=== PATIENT | male | born 1935 | race Caucasian/White ===

== ENCOUNTER → 2016-10-09 | Outpatient (CLI) | payer MEDICARE, BC ==
[~2016-10-09] MED LIST: ACIP20TA19 PO; ADVA100A INH; ADVA250A INH; ALBU8I INH; ALBUAER3 INH; ALBUS PO; APIX2.5T PO; APIX5 PO; APIX5TAB PO; BUME1TAB PO; BUME2TAB PO; BYST5TAB2 PO; CARD120C4 PO; CIAL20TA PO; CIAL5TAB PO; DILT120T PO; DILTCD240 PO; ECOT81TA2 PO; ESZO1TAB4 PO; ESZO3 PO; FERR1TAB36 PO; FINA5TAB2 PO; FINA5TAB77 PO; LEVEMIR SQ; LEVO.1 PO; LEVO.15 PO; NEBI5 PO; POTA20IN3 PO; PRED10 PO; PRED5TAB PO; RABE1TAB PO; SERT-132 PO; SPIRCAP INH; TAMS0.4C4 PO; TAMS0.4C67 PO; TRAD5TAB PO
[2016-10-09 13:02] LABS: POTASSIUM 3.6 MEQ/L (3.5-5.1)
[2016-10-09 13:05] LABS: BICARBONATE 29.4 MEQ/L (21.0-32.0)
[2016-10-09 15:35] LABS: AUTOMATED NEUTROPHIL # 5.5 TH/MM3 (1.8-7.7); BASOPHIL # 0.1 TH/MM3 (0-0.2); BASOPHIL % 1.5 % (0.0-2.0); EOSINOPHIL # 0.1 TH/MM3 (0-0.4); EOSINOPHIL % 1.8 % (0.0-4.0); HEMATOCRIT 50.6 % (39.0-51.0); LYMPH % 13.8 % (9.0-44.0); MEAN CELL VOLUME 72.3 FL (80.0-100.0); MEAN CORPUSCULAR HEMOGLOBIN 23.3 PG (27.0-34.0); MEAN CORPUSCULAR HGB CONC 32.3 % (32.0-36.0); MONO % 9.3 % (0.0-8.0); NEUT % 73.6 % (16.0-70.0); PLATELET COUNT 333 TH/MM3 (150-450); RED BLOOD COUNT 6.99 MIL/MM3 (4.50-5.90); RED CELL DISTRIBUTION WIDTH 18.4 % (11.6-17.2); WHITE BLOOD COUNT 7.4 TH/MM3 (4.0-11.0)
[2016-10-09 15:45] LABS: BLOOD, URINE NEG (NEG); GLUCOSE,URINE NEG (NEG); KETONE, URINE NEG (NEG); MUCUS URINE FEW /lpf (OCC); NITRITE,URINE NEG (NEG); PH, URINE 5.5 (5.0-8.5); SQUAMOUS EPITHELIAL CELL URINE <1 /hpf (0-5); URINE COLOR YELLOW (YELLW/STRAW)
[2016-10-09 15:45] LABS: HEMO FLAGS AUTO DIFF
[2016-10-09 16:08] LABS: OVALOCYTES 1+ (NORMAL); SCAN/DIFF AUTO DIFF CONFIRMED; TEARDROP RBCS 1+ (NORMAL)
== END ==
LOC: PLAB 10:53
PROVIDERS: ATTEND Internal Medicine Nephrology
DX: N18.3 Chronic kidney disease, stage 3 (moderate) (principal)
CPT/HCPCS: 36415; 80069; 81001; 85025

== ENCOUNTER 2016-11-06 12:31 | Inpatient (IN) | payer MEDICARE, BC ==
[2016-11-06] VITALS (12 sets, daily range): BP systolic 96–121; BP diastolic 53–90; PULSE 101–115; RESP 16–22; TEMP 97.7–98.5; O2SAT 83–93
[~2016-11-06] VITALS: Ht 182.9 cm; Wt 96.9 kg
[~2016-11-06 12:31] MED LIST changes: -ADVA100A INH; -ALBUAER3 INH; -ALBUS PO; -APIX2.5T PO; -APIX5TAB PO; -BUME2TAB PO; -BYST5TAB2 PO; -CARD120C4 PO; -CIAL5TAB PO; -DILT120T PO; -ESZO1TAB4 PO; -FERR1TAB36 PO; -FINA5TAB2 PO; -LEVO.15 PO; -PRED5TAB PO; -RABE1TAB PO; -SPIRCAP INH; -TAMS0.4C4 PO
--- NOTE | 2016-11-06 13:08 | PD ---
HPI Chief Complaint: Respiratory Distress Time Seen by Provider: 13:04 Travel History International Travel<30 days: No Contact w/Intl Traveler<30days: No Traveled to known affect area: No History of Present Illness HPI 81-year-old male presents to the emergency department for evaluation of increased heart rate. Patient states he has been checking his heart rate with his blood pressure machine and noticed it to be elevated approximately one to one half weeks ago. He states has been running between 1:15 and 120. However, Thursday, he noticed his heart rate was 145. Patient has a history of atrial flutter/atrial fibrillation, chronic respiratory failure on 3 L O2 nasal cannula chronically, COPD,, asbestos exposure, PVD, GERD, bladder cancer, hyperlipidemia, hypertension, hypothyroidism, peripheral neuropathy, congestive heart failure, obesity, CKD, pneumonia. Patient reports shortness of breath, but states is chronic for him. He has reports bilateral lower extremity edema, which she states is slightly worse than normal. Patient sees Dr. Peters as his health insurance assessor. Patient denies any chest pain. No other complaints. Patient reports intermittent dizziness as well. PFSH Past Medical History Asthma: Yes Anxiety: No Depression: No Cancer: Yes (BLADDER) Cardiovascular Problems: Yes (TACHYCARDIA) High Cholesterol: Yes COPD: Yes Cerebrovascular Accident: Yes Coronary Artery Disease: Yes (PVD/PAD) Diabetes: Yes Diminished Hearing: No Endocrine: Yes Gastrointestinal Disorders: Yes (GERD) Genitourinary: Yes (BALDDER CANCER/ BPH) Hepatitis: No Hiatal Hernia: Yes (ESOPAGEAL STRICTURE) Hypertension: Yes Immune Disorder: No Musculoskeletal: Yes (ARTHRITIS, NECK/ BACK SX) Neurologic: Yes (NEUROPATHY HANDS/ FEET) Psychiatric: No Reproductive: No Respiratory: Yes (COPD) Thyroid Disease: Yes (HYPOTHYROID) Past Surgical History Abdominal Surgery: Yes ( UMBILICAL HERNIORRHAPHY) AICD: No Body Medical Devices: CERVICAL HARDWARE Eye Surgery: Yes (LT EYE CATARACT EXTRACT.) Genitourinary Surgery: Yes (TURBT, EXC. UNILAT. TESTICLE) Joint Replacement: No Pacemaker: No Tonsillectomy: Yes Other Surgery: Yes (BACK SURGERY 08/03/12) Social History Alcohol Use: Yes (~2-3 BEER WEEKLY) Tobacco Use: No Substance Use: No Allergies-Medications (Allergen,Severity, Reaction): Coded Allergies: Biaxin (Verified Allergy, Intermediate, DIARRHEA, 11/06/16) Cimetidine (Verified Allergy, Intermediate, DIARRHEA, 11/06/16) Hydroxyzine (Verified Allergy, Intermediate, DIARRHEA, 11/06/16) Levaquin (Verified Allergy, Intermediate, HIVES, 11/06/16) Zyrtec (Verified Allergy, Intermediate, DROWSY, 11/06/16) Reported Meds & Prescriptions Reported Meds & Active Scripts Active Reported Albuterol Liq (Albuterol Sulfate) 2 Mg/5 Ml Syrp 0.4 Mg PO BID PRN Advair Diskus Inh (Fluticasone-Salmeterol Inh) 100-50 Mcg/Blist Aer 1 Puff INH DAILY Rinse mouth after use. Spiriva Handihaler (Tiotropium Inh) 18 Mcg Cap 18 Mcg INH DAILY 1 capsule = 18 mcg Proair Hfa 8.5 GM Inh (Albuterol Sulfate) 90 Mcg/Act Aer 2 Puff INH Q4-6H PRN 108 mcg/actuation Prednisone 5 Mg Tab 5 Mg PO DAILY Cialis (Tadalafil) 5 Mg Tab 5 Mg PO DAILY Do not exceed 1 dose/day. Iron (Ferrous Sulfate) 325 Mg Tab 325 Mg PO DAILY Take Eszopiclone 3 Mg Tab 3 Mg PO HS PRN Tamsulosin (Tamsulosin HCl) 0.4 Mg Cap 0.4 Mg PO HS Sertraline (Sertraline HCl) 50 Mg Tab 50 Mg PO DAILY Bumetanide 1 Mg Tab 1 Mg PO HS Bumetanide 2 Mg Tab 2 Mg PO AC BREAKFAST Diltiazem (Diltiazem HCl) 120 Mg Tab 120 Mg PO DAILY Eliquis (Apixaban) 5 Mg Tab 5 Mg PO HS Eliquis (Apixaban) 5 Mg Tab 10 Mg PO AC BREAKFAST Tradjenta (Linagliptin) 5 Mg Tab 5 Mg PO DAILY Finasteride 5 Mg Tab 5 Mg PO DAILY Do not crush. Rabeprazole (Rabeprazole Sodium) 20 Mg Tab 20 Mg PO DAILY Bystolic (Nebivolol) 5 Mg Tab 5 Mg PO DAILY Synthroid (Levothyroxine Sodium) 150 Mcg Tab 150 Mcg PO DAILY Review of Systems Except as stated in HPI: all other systems reviewed are Neg Physical Exam Narrative GENERAL: Well-developed well-nourished elderly male patient, Afebrile. SKIN: Warm and dry. HEAD: Normocephalic. Atraumatic. EYES: No scleral icterus. No injection or drainage. NECK: Supple, trachea midline. No JVD or lymphadenopathy. CARDIOVASCULAR: Regular rate, but tachycardic without murmurs, gallops, or rubs. RESPIRATORY: Breath sounds equal bilaterally. No accessory muscle use. Lungs sounds slightly diminished. No wheezes or rhonchi. GASTROINTESTINAL: Abdomen soft, non-tender, nondistended. MUSCULOSKELETAL: No cyanosis. Bilateral 3+ lower extremity edema. BACK: Nontender without obvious deformity. No CVA tenderness. Data Data Last Documented VS Vital Signs Date Time Temp Pulse Resp B/P Pulse Ox O2 Delivery O2 Flow Rate FiO2 11/06/16 13:15 19 Nasal Cannula 3 11/06/16 13:15 113 96/62 89 11/06/16 12:32 98.5 Orders Electrocardiogram (11/06/16 13:04) Basic Metabolic Panel (Bmp) (11/06/16 13:04) Ckmb (Isoenzyme) Profile (11/06/16 13:04) Complete Blood Count With Diff (11/06/16 13:04) Magnesium (Mg) (11/06/16 13:04) Prothrombin Time / Inr (Pt) (11/06/16 13:04) Act Partial Throm Time (Ptt) (11/06/16 13:04) Troponin I (11/06/16 13:04) Chest, Single Ap (11/06/16 13:04) Ecg Monitoring (11/06/16 13:04) Bilateral Bp Monitoring (11/06/16 13:04) Iv Access Insert/Monitor (11/06/16 13:04) Oximetry (11/06/16 13:04) Oxygen Administration (11/06/16 13:04) Sodium Chloride 0.9% Flush (Ns Flush) (11/06/16 13:15) B-Type Natriuretic Peptide (11/06/16 13:08) Diltiazem Inj (Cardizem Inj) (11/06/16 13:45) Diltiazem Inj (Cardizem Inj) (11/06/16 13:45) Diltiazem Inj (Cardizem Inj) (11/06/16 14:30) Consult Cardiology (11/06/16 ) Labs Laboratory Tests Test 11/06/16 13:11 White Blood Count 11.1 TH/MM3 Red Blood Count 6.79 MIL/MM3 Hemoglobin 16.1 GM/DL Hematocrit 50.2 % Mean Corpuscular Volume 74.0 FL Mean Corpuscular Hemoglobin 23.7 PG Mean Corpuscular Hemoglobin 32.0 % Concent Red Cell Distribution Width 20.4 % Platelet Count 386 TH/MM3 Mean Platelet Volume 9.7 FL Neutrophils (%) (Auto) 83.9 % Lymphocytes (%) (Auto) 7.0 % Monocytes (%) (Auto) 7.7 % Eosinophils (%) (Auto) 0.7 % Basophils (%) (Auto) 0.7 % Neutrophils # (Auto) 9.3 TH/MM3 Lymphocytes # (Auto) 0.8 TH/MM3 Monocytes # (Auto) 0.9 TH/MM3 Eosinophils # (Auto) 0.1 TH/MM3 Basophils # (Auto) 0.1 TH/MM3 CBC Comment AUTO DIFF Differential Comment AUTO DIFF CONFIRMED Platelet Estimate NORMAL Platelet Morphology Comment NORMAL Ovalocytes 1+ Prothrombin Time 14.2 SEC Prothromb Time International 1.3 RATIO Ratio Activated Partial 29.4 SEC Thromboplast Time Sodium Level 142 MEQ/L Potassium Level 3.9 MEQ/L Chloride Level 106 MEQ/L Carbon Dioxide Level 25.7 MEQ/L Anion Gap 10 MEQ/L Blood Urea Nitrogen 37 MG/DL Creatinine 1.80 MG/DL Estimat Glomerular Filtration 36 ML/MIN Rate Random Glucose 171 MG/DL Calcium Level 8.4 MG/DL Magnesium Level 2.0 MG/DL Total Creatine Kinase 58 U/L Troponin I 0.03 NG/ML B-Type Natriuretic Peptide 396 PG/ML [facility] Medical Decision Making Medical Screen Exam Complete: Yes Emergency Medical Condition: Yes Medical Record Reviewed: Yes Interpretation(s) chest x-ray - CONCLUSION: 1. Cardiomegaly. 2. Scattered bibasilar atelectactic changes. Differential Diagnosis A. fib with RVR versus sinus tachycardia versus ACS versus electrolyte abnormality versus CHF exacerbation Narrative Course 81-year-old male presents to the emergency department for evaluation of elevated heart rate for one to one and half weeks. Patient has multiple chronic medical problems. EKG, CBC, BMP, CK, troponin, magnesium, BNP, PTT, PTT /INR , chest x-ray are ordered and pending. EKG shows atrial flutter, heart rate 110. Patient is given Cardizem 25mg IV bolus and Cardizem drip is ordered. CBC shows leukocytosis 11.1. BMP shows elevated BUN/creatinine at 37/1.80, glucose 171. CK is 58. Troponin is 0.03. Magnesium is 2.0. BNP is 396. PT is 14.2, INR 1.3, PTT 29.4. Chest x-ray shows cardiomegaly; scattered bibasilar atelectactic changes. Patient is slightly hypertensive with a BP of 96/62. Cardizem is held at this time due to this. Dr. Luque, my attending physician, saw the patient. He recommends admission with telemetry to [facility] with a consult for Dr. Peters to adjust medications. 0567 [facility] is paged for admission. 1500 - Dr. Logan accepted admission. Diagnosis Primary Impression: Atrial fibrillation with rapid ventricular response Additional Impressions: CKD (chronic kidney disease), stage III chronic dyspnea, chronic respiratory failure Admitting Information Admitting Physician Requests: Observation Ree Perez Nov 06, 2016 13:08
[2016-11-06] MEDS ORDERED: SODIUM CHLORIDE 0.9% FLUSH 5 ML FLUSH IVF PRN (13:15)
[2016-11-06 13:29] LABS: AUTOMATED NEUTROPHIL # 9.3 TH/MM3 (1.8-7.7); BASOPHIL # 0.1 TH/MM3 (0-0.2); BASOPHIL % 0.7 % (0.0-2.0); EOSINOPHIL # 0.1 TH/MM3 (0-0.4); EOSINOPHIL % 0.7 % (0.0-4.0); HEMATOCRIT 50.2 % (39.0-51.0); LYMPHOCYTE # 0.8 TH/MM3 (1.0-4.8); MEAN CORPUSCULAR HEMOGLOBIN 23.7 PG (27.0-34.0); MONO % 7.7 % (0.0-8.0); NEUT % 83.9 % (16.0-70.0); PLATELET COUNT 386 TH/MM3 (150-450); RED BLOOD COUNT 6.79 MIL/MM3 (4.50-5.90); RED CELL DISTRIBUTION WIDTH 20.4 % (11.6-17.2); WHITE BLOOD COUNT 11.1 TH/MM3 (4.0-11.0)
[2016-11-06 13:35] LABS: HEMO FLAGS AUTO DIFF
[2016-11-06 13:39] LABS: APTT (PATIENT) 29.4 SEC (24.3-30.1); INTERNATIONAL NORMALIZED RATIO 1.3 RATIO; PROTHROMBIN TIME - PATIENT 14.2 SEC (9.8-11.6)
[2016-11-06] MEDS ORDERED: DILTIAZEM HCL 25 MG/5 ML VIAL IV PUSH ONE (13:45)
[2016-11-06] MEDS ORDERED: DILTIAZEM INJ 125 MG in SODIUM CHLORIDE 0.9% INJ 100 ML IV SCH (13:45)
[2016-11-06 13:52] LABS: BICARBONATE 25.7 MEQ/L (21.0-32.0); POTASSIUM 3.9 MEQ/L (3.5-5.1)
--- NOTE | 2016-11-06 13:52 | RADRPT ---
EXAM DATE/TIME: 11/06/2016 13:25 [place] COMPARISON: CHEST SINGLE AP, May 05, 2016, 5:48. INDICATIONS : Shortness of breath MEDICAL HISTORY : None. SURGICAL HISTORY : None. ENCOUNTER: Initial ACUITY: 4 - 6 days PAIN SCORE: 0/10 LOCATION: Bilateral chest FINDINGS: The heart is enlarged. The pulmonary vascular pattern is normal. Scattered atelectactic changes are noted within the lung bases. No alveolar consolidation is noted. Hardware is noted within the cerv ical spine. CONCLUSION: 1. Cardiomegaly. 2. Scattered bibasilar atelectactic changes. Darin Singh MD on November 06, 2016 at 13:48 Board Certified Radiologist. This report was verified electronically.
[2016-11-06 14:05] LABS: PLATELET ESTIMATE SMEAR NORMAL (NORMAL); SCAN/DIFF AUTO DIFF CONFIRMED
[2016-11-06 14:06] LABS: OVALOCYTES 1+ (NORMAL); PLATELET MORPHOLOGY NORMAL (NORMAL)
[2016-11-06] MEDS ORDERED: ESZO1TAB4 PO (14:06)
[2016-11-06] MEDS ORDERED: CIAL5TAB PO (14:06)
[2016-11-06] MEDS ORDERED: SERT-132 PO (14:06)
[2016-11-06] MEDS ORDERED: TAMS0.4C4 PO (14:06)
[2016-11-06] MEDS ORDERED: BUME2TAB PO (14:06)
[2016-11-06] MEDS ORDERED: DILT120T PO (14:06)
[2016-11-06] MEDS ORDERED: FERR1TAB36 PO (14:06)
[2016-11-06] MEDS ORDERED: FINA5TAB2 PO (14:06)
[2016-11-06] MEDS ORDERED: RABE1TAB PO (14:06)
[2016-11-06] MEDS ORDERED: APIX5TAB PO ×2 (14:06)
[2016-11-06] MEDS ORDERED: TRAD5TAB PO (14:06)
[2016-11-06] MEDS ORDERED: LEVO.15 PO (14:06)
[2016-11-06] MEDS ORDERED: BUME1TAB PO (14:06)
[2016-11-06] MEDS ORDERED: BYST5TAB2 PO (14:06)
[2016-11-06] MEDS ORDERED: PRED5TAB PO (14:07)
[2016-11-06] MEDS ORDERED: ALBUS PO (14:07)
[2016-11-06] MEDS ORDERED: ADVA100A INH (14:07)
[2016-11-06] MEDS ORDERED: SPIRCAP INH (14:07)
[2016-11-06] MEDS ORDERED: ALBUAER3 INH (14:07)
[2016-11-06] MEDS ORDERED: DILTIAZEM HCL 25 MG/5 ML VIAL IV ONE (14:30)
--- NOTE | 2016-11-06 15:22 | PD ---
Physical Exam Narrative 81-year-old gentleman with a history of atrial fibrillation/atrial flutter, as best doses, chronic respiratory failure, COPD, hypertension, congestive heart failure, chronic kidney disease, who presents today with complaints of intermittent elevated heart rate. The patient states that over the last week and a half he's noted his heart rate to be elevated. He did state that he was slightly lightheaded episodically which prompted him to check his heart rate. He denies any acute worsening shortness of breath. He denies any chest pain, chest pressure. He was seen in April and had an ablation by Dr. Maggie Peters, cardiac firer [employer], who reportedly successfully ablated him. He now presents with elevated heart rate with the reported episodes of weakness. GENERAL: Well-nourished, well-developed patient. SKIN: Warm and dry. HEAD: Normocephalic/atraumatic. EYES: No injection or drainage. NECK: Supple, trachea midline. No JVD or lymphadenopathy. CARDIOVASCULAR: Rate that appears regular in the 110s and 120s. No obvious ectopy or murmurs appreciated. RESPIRATORY: Slight decreased respiratory effort. No appreciable Rales or rhonchi. GASTROINTESTINAL: Abdomen soft, non-tender, nondistended. NEUROLOGICAL: Awake and alert. Cranial nerves II through XII intact. Motor grossly within normal limits. Five out of 5 muscle strength in all muscle groups. Normal speech. Data Data Last Documented VS Vital Signs Date Time Temp Pulse Resp B/P Pulse Ox O2 Delivery O2 Flow Rate FiO2 11/06/16 13:15 19 Nasal Cannula 3 11/06/16 13:15 113 96/62 89 11/06/16 12:32 98.5 Orders Electrocardiogram (11/06/16 13:04) Basic Metabolic Panel (Bmp) (11/06/16 13:04) Ckmb (Isoenzyme) Profile (11/06/16 13:04) Complete Blood Count With Diff (11/06/16 13:04) Magnesium (Mg) (11/06/16 13:04) Prothrombin Time / Inr (Pt) (11/06/16 13:04) Act Partial Throm Time (Ptt) (11/06/16 13:04) Troponin I (11/06/16 13:04) Chest, Single Ap (11/06/16 13:04) Ecg Monitoring (11/06/16 13:04) Bilateral Bp Monitoring (11/06/16 13:04) Iv Access Insert/Monitor (11/06/16 13:04) Oximetry (11/06/16 13:04) Oxygen Administration (11/06/16 13:04) Sodium Chloride 0.9% Flush (Ns Flush) (11/06/16 13:15) B-Type Natriuretic Peptide (11/06/16 13:08) Diltiazem Inj (Cardizem Inj) (11/06/16 13:45) Diltiazem Inj (Cardizem Inj) (11/06/16 13:45) Diltiazem Inj (Cardizem Inj) (11/06/16 14:30) Consult Cardiology (11/06/16 ) Admit Order (Ed Use Only) (11/06/16 15:01) Labs Laboratory Tests Test 11/06/16 13:11 White Blood Count 11.1 TH/MM3 Red Blood Count 6.79 MIL/MM3 Hemoglobin 16.1 GM/DL Hematocrit 50.2 % Mean Corpuscular Volume 74.0 FL Mean Corpuscular Hemoglobin 23.7 PG Mean Corpuscular Hemoglobin 32.0 % Concent Red Cell Distribution Width 20.4 % Platelet Count 386 TH/MM3 Mean Platelet Volume 9.7 FL Neutrophils (%) (Auto) 83.9 % Lymphocytes (%) (Auto) 7.0 % Monocytes (%) (Auto) 7.7 % Eosinophils (%) (Auto) 0.7 % Basophils (%) (Auto) 0.7 % Neutrophils # (Auto) 9.3 TH/MM3 Lymphocytes # (Auto) 0.8 TH/MM3 Monocytes # (Auto) 0.9 TH/MM3 Eosinophils # (Auto) 0.1 TH/MM3 Basophils # (Auto) 0.1 TH/MM3 CBC Comment AUTO DIFF Differential Comment AUTO DIFF CONFIRMED Platelet Estimate NORMAL Platelet Morphology Comment NORMAL Ovalocytes 1+ Prothrombin Time 14.2 SEC Prothromb Time International 1.3 RATIO Ratio Activated Partial 29.4 SEC Thromboplast Time Sodium Level 142 MEQ/L Potassium Level 3.9 MEQ/L Chloride Level 106 MEQ/L Carbon Dioxide Level 25.7 MEQ/L Anion Gap 10 MEQ/L Blood Urea Nitrogen 37 MG/DL Creatinine 1.80 MG/DL Estimat Glomerular Filtration 36 ML/MIN Rate Random Glucose 171 MG/DL Calcium Level 8.4 MG/DL Magnesium Level 2.0 MG/DL Total Creatine Kinase 58 U/L Troponin I 0.03 NG/ML B-Type Natriuretic Peptide 396 PG/ML [facility] Medical Record Reviewed: Yes Supervised Visit with MANOJ: Yes Differential Diagnosis A. fib/flutter with RVR versus CHF versus pneumonia Narrative Course 81-year-old gentleman with history of atrial fib atrial flutter, presents today with complaints of one and half weeks of elevated heart rate. The patient had mild weakness associated with the events. The patient was noted to be with a flutter here in the emergency department with a rate of 110. His systolic blood pressure was 96. Initially we were to start Cardizem to lower his heart rate however given his low systolic blood pressure was held. I discussed with the patient that it would be prudent to admit him to the hospital and have the charge nurse see him. He and his are agreeable to this plan. The case was discussed with Dr. Geovany Logan, [facility], who is agreed to place the patient under observation under his service. Diagnosis Primary Impression: Atrial fibrillation with rapid ventricular response Additional Impressions: chronic dyspnea, chronic respiratory failure CKD (chronic kidney disease), stage III Sher Luque MD Nov 06, 2016 15:22
[2016-11-06] MEDS ORDERED: ACETAMINOPHEN 325 MG TAB PO PRN ×2 (15:30)
[2016-11-06] MEDS ORDERED: NALOXONE HCL 0.4 MG/ML AMP IV PRN (15:30)
[2016-11-06] MEDS ORDERED: ONDANSETRON HCL 4 MG/2 ML VIAL IVP PRN (15:30)
[2016-11-06] MEDS ORDERED: SODIUM CHLORIDE 0.9% FLUSH 5 ML FLUSH FLUSH PRN (15:30)
--- NOTE | 2016-11-06 16:26 | HHI.HP ---
[facility] Service [facility] Primary Care Physician Laith Stallworth MD Admission Diagnosis Atrial flutter with RVR Diagnoses: (1) Atrial fibrillation with rapid ventricular response (2) Chronic respiratory failure (3) HTN (hypertension) (4) hypothyroidism (5) chronic dyspnea, chronic respiratory failure (6) diabetes (7) history of asbestos exposure (8) history of neuropathy (9) ventral hernia (10) PVD (11) hyperlipidemia (12) COPD, end-stage (13) CKD (chronic kidney disease), stage III (14) history of bladder cancer status post TURBT (15) BPH (benign prostatic hypertrophy) Chief Complaint: Evaluation for fast heart rate Travel History International Travel<30 Days: No Contact w/Intl Traveler <30 Da: No Traveled to Known Affected Are: No History of Present Illness 81-year-old male with a history of chronic respiratory failure, COPD, asbestosis, atria flutter/fibrillation came to the emergency department for evaluation of fast heart rate of 112 without any complaint of chest pain. Patient states he usually check his heart rate while checking his blood pressure , and notices a fast Heart rate morning and decided to come to the hospital for further workup. He recently completed a ten-day course of by mouth antibiotics for upper respiratory infection. He has no other complaints. Review of Systems Other 12 systems reviewed and are negative except for the one mentioned in the history of present illness Past Family Social History Past Medical History COPD, asbestos exposure, peripheral vascular disease, GERD, bladder cancer, tachycardia, hyperlipidemia, diabetes mellitus, hypertension, hypothyroidism and peripheral neuropathy Past Surgical History Abdominal Surgery: Yes ( UMBILICAL HERNIORRHAPHY) Body Medical Devices: CERVICAL HARDWARE Eye Surgery: Yes (LT EYE CATARACT EXTRACT.) Genitourinary Surgery: Yes (TURBT, EXC. UNILAT. TESTICLE) Tonsillectomy: Yes Other Surgery: Yes (BACK SURGERY 08/03/12) Allergies: Coded Allergies: Biaxin (Verified Allergy, Intermediate, DIARRHEA, 11/06/16) Cimetidine (Verified Allergy, Intermediate, DIARRHEA, 11/06/16) Hydroxyzine (Verified Allergy, Intermediate, DIARRHEA, 11/06/16) Levaquin (Verified Allergy, Intermediate, HIVES, 11/06/16) Zyrtec (Verified Allergy, Intermediate, DROWSY, 11/06/16) Family History Father had diabetes, hypertension and heart disease Mother had hyperlipidemia Social History Alcohol Use: Yes (~2-3 BEER WEEKLY) Tobacco Use: No Substance Use: No Physical Exam Vital Signs Vital Signs Date Time Temp Pulse Resp B/P Pulse Ox O2 Delivery O2 Flow Rate FiO2 11/06/16 15:15 103 18 117/79 93 3 11/06/16 13:15 19 Nasal Cannula 3 11/06/16 13:15 113 20 96/62 89 3 11/06/16 13:15 89 Nasal Cannula 3 11/06/16 13:15 113 20 99/67 89 Nasal Cannula 3 11/06/16 13:15 110 20 98/67 89 Nasal Cannula 3 11/06/16 12:32 98.5 112 22 102/69 83 Room Air 3 Physical Exam GENERAL: This is a well-nourished, well-developed patient, in no apparent distress. SKIN: No rashes, ecchymoses or lesions. Cool and dry. HEAD: Atraumatic. Normocephalic. No temporal or scalp tenderness. EYES: Pupils equal round and reactive. Extraocular motions intact. No scleral icterus. No injection or drainage. ENT: Nose without bleeding, purulent drainage or septal hematoma. Throat without erythema, tonsillar hypertrophy or exudate. Uvula midline. Airway patent. NECK: Trachea midline. No JVD or lymphadenopathy. Supple, nontender, no meningeal signs. CARDIOVASCULAR: Regular rate and rhythm without murmurs, gallops, or rubs. RESPIRATORY: Clear to auscultation. Breath sounds equal bilaterally. No wheezes , rales, or rhonchi. GASTROINTESTINAL: Abdomen soft, non-tender, nondistended. No hepato-splenomegaly , or palpable masses. No guarding. MUSCULOSKELETAL: Extremities without clubbing, cyanosis, or edema. No joint tenderness, effusion, or edema noted. No calf tenderness. Negative Homans sign bilaterally. NEUROLOGICAL: Awake and alert. Cranial nerves II through XII intact. Motor and sensory grossly within normal limits. Five out of 5 muscle strength in all muscle groups. Normal speech. Laboratory Laboratory Tests Test 11/06/16 13:11 White Blood Count 11.1 Red Blood Count 6.79 Hemoglobin 16.1 Hematocrit 50.2 Mean Corpuscular Volume 74.0 Mean Corpuscular Hemoglobin 23.7 Mean Corpuscular Hemoglobin 32.0 Concent Red Cell Distribution Width 20.4 Platelet Count 386 Mean Platelet Volume 9.7 Neutrophils (%) (Auto) 83.9 Lymphocytes (%) (Auto) 7.0 Monocytes (%) (Auto) 7.7 Eosinophils (%) (Auto) 0.7 Basophils (%) (Auto) 0.7 Neutrophils # (Auto) 9.3 Lymphocytes # (Auto) 0.8 Monocytes # (Auto) 0.9 Eosinophils # (Auto) 0.1 Basophils # (Auto) 0.1 CBC Comment AUTO DIFF Differential Comment AUTO DIFF CONFIRMED Platelet Estimate NORMAL Platelet Morphology Comment NORMAL Ovalocytes 1+ Prothrombin Time 14.2 Prothromb Time International 1.3 Ratio Activated Partial 29.4 Thromboplast Time Sodium Level 142 Potassium Level 3.9 Chloride Level 106 Carbon Dioxide Level 25.7 Anion Gap 10 Blood Urea Nitrogen 37 Creatinine 1.80 Estimat Glomerular Filtration 36 Rate Random Glucose 171 Calcium Level 8.4 Magnesium Level 2.0 Total Creatine Kinase 58 Troponin I 0.03 B-Type Natriuretic Peptide 396 Result Diagram: 11/06/16 1311 11/06/16 1311 Assessment and Plan Problem List: (1) Atrial fibrillation with rapid ventricular response ICD Code: I48.91 Status: Resolved (2) COPD, end-stage Status: Acute (3) chronic dyspnea, chronic respiratory failure Status: Acute (4) history of asbestos exposure Status: Acute (5) history of neuropathy Status: Acute (6) ventral hernia Status: Acute (7) PVD Status: Acute (8) hyperlipidemia Status: Acute (9) hypertension Status: Acute (10) BPH (benign prostatic hypertrophy) ICD Code: N40.0 Status: Acute (11) CKD (chronic kidney disease), stage III ICD Code: N18.3 Status: Chronic (12) history of bladder cancer status post TURBT Status: Acute Assessment and Plan 81-year-old male with 1-History of atrial fibrillation, Status post ablation on 04/25/16 now presents with atrial flutter with RVR : Consult surveillance dual rate officer for further evaluation as patient with prior cardiac ablations. resume Eliquis and Cardizem as well as Bystolic. Check 2-D echo and continuing telemetry monitoring 2-Acute kidney injury superimposed on chronic kidney disease stage III -avoid all nephrotoxic drug, Fluid restriction to <2L. monitor BUN and creatinine 3-Diabetes mellitus2. Start Accu-Cheks with sliding scale coverage and resume Tradjenta, Levemir 5 units subcutaneous at bedtime. 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 per the patient - Scheduled and when necessary DuoNeb, and resume outpatient medications including prednisone 5 mg daily, long-acting beta agonist, oxygen saturation above 90% 5-Hypothyroidism: Resume Synthroid 6-Chronic diastolic CHF: Resume diuretics 7-Hypertension: Secondary to low BP will hold on Cardizem 8-Hyperlipidemia: Resume statin DVT prophylaxis: Eliquis Code Status Full code Discussed Condition With Patient, , ED physician Physician Certification 2 Midnight Certification Type: Admission for Inpatient Services Order for Inpatient Services The services are ordered in accordance with Medicare regulations or non- Medicare payer requirements, as applicable. In the case of services not specified as inpatient-only, they are appropriately provided as inpatient services in accordance with the 2-midnight benchmark. Estimated LOS (days): 2 days is the estimated time the patient will need to remain in the hospital, assuming treatment plan goals are met and no additional complications. Post-Hospital Plan: Not yet determined Geovany Logan MD Nov 06, 2016 16:26
[2016-11-06] MEDS ORDERED: ONDANSETRON HCL 4 MG/2 ML VIAL IV PRN (17:30)
[2016-11-06] MEDS ORDERED: DEXTROSE 50% IN WATER 50 ML VIAL(D50) IV PUSH PRN (17:30)
[2016-11-06] MEDS ORDERED: TEMAZEPAM 15 MG CAP PO PRN (17:30)
[2016-11-06] MEDS ORDERED: RESP: ALBUTEROL 2.5 MG/IPRATROPIUM 0.5 MG NEB (PRN) NEB (17:30)
[2016-11-06] MEDS ORDERED: GLUCAGON 1 MG/ML VIAL OTHER PRN (17:30)
[2016-11-06] MEDS ORDERED: DOCUSATE SODIUM 50 MG/SENNA 8.6 MG TAB PO PRN (17:30)
[2016-11-06] MEDS: RESP: ALBUTEROL 2.5 MG/IPRATROPIUM 0.5 MG NEB (SCH) NEB (20:01)
[2016-11-06] MEDS ORDERED: APIXABAN 5 MG TABLET PO SCH (21:00)
[2016-11-06] MEDS: INSULIN ASPART SUPPLEMENTAL SCALE SQ SCH (21:00)
[2016-11-06] MEDS: BUMETANIDE 1 MG TAB PO SCH (21:07)
[2016-11-06] MEDS: SODIUM CHLORIDE 0.9% FLUSH 5 ML FLUSH FLUSH SCH (21:07)
[2016-11-06] MEDS: APIXABAN 2.5 MG TABLET PO SCH (21:08)
[2016-11-06] MEDS: TAMSULOSIN HCL 0.4 MG CAP PO SCH (21:08)
[2016-11-07] VITALS (34 sets, daily range): BP systolic 92–124; BP diastolic 65–87; PULSE 82–115; RESP 16–20; TEMP 97.4–98.5; O2SAT 88–95
[2016-11-07] MEDS: LEVOTHYROXINE SODIUM 150 MCG TAB PO SCH (06:00)
[2016-11-07 06:59] LABS: AUTOMATED NEUTROPHIL # 7.3 TH/MM3 (1.8-7.7); BASOPHIL # 0.1 TH/MM3 (0-0.2); BASOPHIL % 1.2 % (0.0-2.0); EOSINOPHIL # 0.2 TH/MM3 (0-0.4); EOSINOPHIL % 1.9 % (0.0-4.0); HEMATOCRIT 48.2 % (39.0-51.0); LYMPH % 12.9 % (9.0-44.0); LYMPHOCYTE # 1.3 TH/MM3 (1.0-4.8); MEAN CELL VOLUME 72.9 FL (80.0-100.0); MEAN CORPUSCULAR HEMOGLOBIN 24.2 PG (27.0-34.0); MEAN CORPUSCULAR HGB CONC 33.2 % (32.0-36.0); MONO % 9.5 % (0.0-8.0); NEUT % 74.5 % (16.0-70.0); PLATELET COUNT 314 TH/MM3 (150-450); RED BLOOD COUNT 6.62 MIL/MM3 (4.50-5.90); RED CELL DISTRIBUTION WIDTH 20.5 % (11.6-17.2); WHITE BLOOD COUNT 9.8 TH/MM3 (4.0-11.0)
[2016-11-07] MEDS ORDERED: APIXABAN 5 MG TABLET PO SCH (07:00)
[2016-11-07] MEDS: INSULIN ASPART SUPPLEMENTAL SCALE SQ SCH ×4 (07:00→21:01)
[2016-11-07 07:17] LABS: HEMO FLAGS AUTO DIFF
[2016-11-07] MEDS: BUMETANIDE 1 MG TAB PO SCH ×2 (07:20→20:52)
[2016-11-07 07:23] LABS: ALT (GPT) 22 U/L (12-78); ANION GAP 12 MEQ/L (5-15); AST (GOT) 16 U/L (15-37); BICARBONATE 27.3 MEQ/L (21.0-32.0); BLOOD UREA NITROGEN 32 MG/DL (7-18); CHLORIDE 105 MEQ/L (98-107); GLOMERULAR FILTRATION RATE 47 ML/MIN (>89); POTASSIUM 3.5 MEQ/L (3.5-5.1); SODIUM (NA) 144 MEQ/L (136-145)
[2016-11-07 07:25] LABS: ALKALINE PHOSPHATASE 61 U/L (45-117); TOTAL BILIRUBIN ADULT 1.4 MG/DL (0.2-1.0)
[2016-11-07] MEDS: RESP: ALBUTEROL 2.5 MG/IPRATROPIUM 0.5 MG NEB (SCH) NEB ×3 (07:59→20:41)
[2016-11-07 08:00] LABS: BANDS 1 % (0-6); BASOPHILS 2 % (0-2); EOSINOPHILS 1 % (0-4); MYELOCYTES 1 % (0-0); NEUTROPHIL # MANUAL DIFF 7.5 TH/MM3 (1.8-7.7); PLATELET ESTIMATE SMEAR NORMAL (NORMAL); PLATELET MORPHOLOGY NORMAL (NORMAL); POLYS (SEG NEUTROPHILS) 75 % (16-70); SCAN/DIFF FINAL DIFF MANUAL; WBC DIFF SAMPLE 100
[2016-11-07 08:01] LABS: OVALOCYTES 1+ (NORMAL)
[2016-11-07] MEDS ORDERED: LINAGLIPTIN 5 MG PO SCH (09:00)
[2016-11-07] MEDS ORDERED: DILTIAZEM-CD 120 MG CAP ER PO SCH (09:00)
[2016-11-07] MEDS ORDERED: NON-FORMULARY DRUG (Tadalafil (Cialis) 5 MG) PO SCH (09:00)
[2016-11-07] MEDS: BUDESONIDE-FORMOTEROL 80/4.5 MCG INHALER INH SCH (09:39)
[2016-11-07] MEDS: SODIUM CHLORIDE 0.9% FLUSH 5 ML FLUSH FLUSH SCH ×2 (09:39→20:54)
[2016-11-07] MEDS: FINASTERIDE 5 MG TAB PO SCH (09:39)
[2016-11-07] MEDS: TIOTROPIUM BROMIDE 18 MCG INH INH SCH (09:39)
[2016-11-07] MEDS: NEBIVOLOL 5 MG TAB PO SCH (09:40)
[2016-11-07] MEDS: PANTOPRAZOLE SOD 20 MG DELAYED RELEASE TAB PO SCH (09:40)
[2016-11-07] MEDS: predniSONE 5 MG TAB PO SCH (09:40)
[2016-11-07] MEDS: SERTRALINE HCL 50 MG TAB PO SCH (09:40)
[2016-11-07] MEDS: APIXABAN 2.5 MG TABLET PO SCH ×2 (09:40→20:53)
[2016-11-07] MEDS ORDERED: PROPOFOL 200 MG/20 ML AMP IV ONE (10:46)
--- NOTE | 2016-11-07 13:30 | HHI.PR ---
Subjective Remarks Follow-up atrial flutter with rapid ventricular response 11/07/16-patient seen and examined, still in atrial flutter/fibrillation however denies any chest pain but still complains of shortness of breath. Plan for cardiac ablation today Objective Vitals Vital Signs Date Time Temp Pulse Resp B/P Pulse Ox O2 Delivery O2 Flow Rate FiO2 11/07/16 12:00 111 11/07/16 11:00 97.8 114 20 109/80 89 11/07/16 11:00 112 11/07/16 10:00 112 11/07/16 09:00 112 11/07/16 08:00 110 11/07/16 08:00 92 Nasal Cannula 4.00 11/07/16 07:15 97.6 110 20 107/75 91 11/07/16 07:15 109 11/07/16 06:12 102 11/07/16 05:00 96 11/07/16 04:00 107 11/07/16 03:00 109 11/07/16 03:00 98.5 109 16 92/65 95 11/07/16 02:00 106 11/07/16 01:00 100 11/07/16 00:00 102 11/06/16 23:00 108 11/06/16 23:00 98.2 108 16 110/72 92 11/06/16 22:00 101 11/06/16 21:00 115 11/06/16 20:01 92 Nasal Cannula 4.00 11/06/16 20:00 102 11/06/16 19:00 111 11/06/16 19:00 98.4 111 18 102/78 91 11/06/16 18:02 97.7 112 20 121/90 89 11/06/16 18:01 112 11/06/16 17:33 105 109/53 92 Nasal Cannula 3 11/06/16 15:15 103 18 117/79 93 3 I/O 11/06/16 11/06/16 11/06/16 11/07/16 11/07/16 11/07/16 07:00 15:00 23:00 07:00 15:00 23:00 Intake Total 720 ml Output Total 1500 ml Balance -780 ml Intake Oral 720 ml Output Urine Total 1500 ml Result Diagram: 11/07/1643911/07/16439 Imaging Last Impressions Chest X-Ray 11/06/16 9036 Signed Impressions: Service Date/Time: October 13:25 - CONCLUSION: 1. Cardiomegaly. 2. Scattered bibasilar atelectactic changes. Drain Singh MD Objective Remarks GENERAL: NAD SKIN: Warm and dry. HEAD: Normocephalic. EYES: No scleral icterus. No injection or drainage. NECK: Supple, trachea midline. No JVD or lymphadenopathy. CARDIOVASCULAR: Irregular Regular rate and rhythm without murmurs, gallops, or rubs. RESPIRATORY: Breath sounds equal bilaterally. No accessory muscle use. GASTROINTESTINAL: Abdomen soft, non-tender, nondistended. MUSCULOSKELETAL: No cyanosis, or edema. BACK: Nontender without obvious deformity. No CVA tenderness. A/P Problem List: (1) Atrial fibrillation with rapid ventricular response ICD Code: I48.91 Status: Resolved (2) COPD, end-stage Status: Acute (3) chronic dyspnea, chronic respiratory failure Status: Acute (4) history of asbestos exposure Status: Acute (5) history of neuropathy Status: Acute (6) ventral hernia Status: Acute (7) PVD Status: Acute (8) hyperlipidemia Status: Acute (9) hypertension Status: Acute (10) BPH (benign prostatic hypertrophy) ICD Code: N40.0 Status: Acute (11) CKD (chronic kidney disease), stage III ICD Code: N18.3 Status: Chronic (12) history of bladder cancer status post TURBT Status: Acute Assessment and Plan 81-year-old male with 1-History of atrial fibrillation, Status post ablation on 04/25/16 now presents with atrial flutter with RVR : Appreciate input from cardiology and plan for cardiac ablation today 11/07/16. Continue Eliquis and Cardizem as well as Bystolic. 2-D echo pending and continuing telemetry monitoring 2-Acute kidney injury superimposed on chronic kidney disease stage III -avoid all nephrotoxic drug, Fluid restriction to <2L. monitor BUN and creatinine 3-Diabetes mellitus2. on Accu-Cheks with sliding scale coverage and continue Tradjenta, Levemir 5 units subcutaneous at bedtime. 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
--- NOTE | 2016-11-07 16:59 | EC ---
Study Study Date:11/07/2016 STUDY CONCLUSIONS SUMMARY - Left ventricle: The cavity size was normal. Wall thickness was normal. Systolic function was normal. The estimated ejection fraction was in the range of 60% to 65%. Wall motion was normal; there were no regional wall motion abnormalities. - Aortic valve: Valve area: 3.1cm^2(VTI). Valve area: 2.85cm^2 (Vmax). - Left atrium: The atrium was dilated. - Right ventricle: The cavity size was dilated. Wall thickness was normal. Systolic function was severely reduced. - Tricuspid valve: Severe regurgitation. - Pulmonary arteries: PA peak pressure: 82mm Hg (S). If LV function is below 40, please consider prescribing an ACEI or ARB or document rationale for non-use. PROCEDURE DATA STUDY STATUS: Elective. Procedure: Transthoracic echocardiography. Image quality was good. Scanning was performed from the parasternal, apical, and subcostal acoustic windows. Study completion: The patient tolerated the procedure well. Transthoracic echocardiography. M-mode, complete 2D, complete spectral Doppler, and color Doppler. Height: Height: 72in. Weight: Weight: 217.5lb. Body mass index: BMI: 29.6kg/m^2. Body surface area: BSA: 2.21m^2. Patient status: Inpatient. CARDIAC ANATOMY LEFT VENTRICLE: The cavity size was normal. Wall thickness was normal. Systolic function was normal. The estimated ejection fraction was in the range of 60% to 65%. Wall motion was normal; there were no regional wall motion abnormalities. AORTIC VALVE: Trileaflet; normal thickness leaflets. Doppler: Transvalvular velocity was within the normal range. There was no stenosis. No regurgitation. Valve area: 3.1cm^2(VTI). Indexed valve area: 1.4cm^2/m^2 (VTI). Valve area: 2.85cm^2 (Vmax). Indexed valve area: 1.29cm^2/m^2 (Vmax). Mean gradient: 2mm Hg (S). AORTA: Aortic root: The aortic root was normal in size. MITRAL VALVE: Structurally normal valve. Doppler: Transvalvular velocity was within the normal range. There was no evidence for stenosis. No regurgitation. LEFT ATRIUM: The atrium was dilated. RIGHT VENTRICLE: The cavity size was dilated. Wall thickness was normal. Systolic function was severely reduced. PULMONIC VALVE: Doppler: Transvalvular velocity was within the normal range. There was no evidence for stenosis. No regurgitation. TRICUSPID VALVE: Structurally normal valve. Doppler: Transvalvular velocity was within the normal range. Severe regurgitation. PULMONARY ARTERY: The main pulmonary artery was normal-sized. Systolic pressure was within the normal range. RIGHT ATRIUM: The atrium was normal in size. PERICARDIUM: There was no pericardial effusion. SYSTEMIC VEINS: Inferior vena cava: The vessel was dilated; the respirophasic diameter changes were blunted (< 50%); findings are consistent with elevated central venous pressure. Patient weight: 217.5lb _Ejection fraction:_ 65-75% _Fractional shortening:_ 32% up to 5Kg 5-11.5Kg 11.6-22.9Kg 23-45Kg 45-57Kg Aortic Root 7-13 <17 13-22 17-27 17-27 LA diam 6-13 <23 24-38 33-47 37-40 RVID 10-17 7-15 7-15 7-18 8-17 LVIDd 12-22 <32 24-38 33-47 37-40 LVPW 2-4 3-6 5-7 6-8 7-8 IVS 2-4 3-6 5-7 6-8 7-8 BASIC MEASUREMENTS ADULT NORMAL Left ventricle LV internal dimension, ED, chordal 45.6 mm 43-52 level, PLAX LV internal dimension, ES, chordal 32.2 mm 23-38 level, PLAX Fractional shortening, chordal level, *29 % >29 PLAX LV posterior wall thickness, ED 11.6 mm IVS/LVPW ratio, ED 0.99 <1.3 Ventricular septum Septal thickness, ED 11.5 mm Aortic valve Leaflet separation 21 mm 15-26 Aorta Root diameter, ED 40 mm Left atrium Anterior-posterior dimension 42 mm Anterior-posterior dimension index 1.9 cm/m^2 <2.2 BASIC MEASUREMENTS ADULT NORMAL Aortic valve Leaflet separation 21 mm 15-26 DOPPLER MEASUREMENTS ADULT NORMAL Main pulmonary artery Pressure, S *82 mm Hg =30 Aortic valve Peak velocity, S 89.6 cm/s Mean velocity, S 59.4 cm/s VTI, S 12.4 cm Mean gradient, S 2 mm Hg Valve area, VTI 3.1 cm^2 Valve area index, VTI 1.4 cm^2/m^2 Valve area, Vmax 2.85 cm^2 Valve area index, Vmax 1.29 cm^2/m^2 Mitral valve Peak E-wave velocity 57.3 cm/s Peak A-wave velocity 83.9 cm/s Deceleration time *40 ms 150-230 Peak E/A ratio 0.7 Tricuspid valve Regurgitant peak velocity 398 cm/s Peak RV-RA gradient, S 63 mm Hg Maximal regurgitant velocity 398 cm/s Systemic veins Estimated CVP 20 mm Hg Right ventricle RV pressure, S *83 mm Hg <30 Pulmonic valve Peak velocity, S 54.1 cm/s LEGEND: Mean values are shown as u=mean value. Asterisk (*) conroy values outside specified normal range. Prepared and signed by Elvin Pereira [id number]
--- NOTE | 2016-11-07 18:27 | HHI.PR ---
Subjective Remarks Feeling ok Objective Vital Signs Date Time Temp Pulse Resp B/P Pulse Ox O2 Delivery O2 Flow Rate FiO2 11/07/16 18:00 110 11/07/16 17:00 110 11/07/16 16:00 112 11/07/16 15:00 111 11/07/16 15:00 97.4 115 20 114/77 88 11/07/16 14:00 112 11/07/16 13:00 112 11/07/16 12:00 111 11/07/16 11:00 97.8 114 20 109/80 89 11/07/16 11:00 112 11/07/16 10:00 112 11/07/16 09:00 112 11/07/16 08:00 110 11/07/16 08:00 92 Nasal Cannula 4.00 11/07/16 07:15 97.6 110 20 107/75 91 11/07/16 07:15 109 11/07/16 06:12 102 11/07/16 05:00 96 11/07/16 04:00 107 11/07/16 03:00 109 11/07/16 03:00 98.5 109 16 92/65 95 11/07/16 02:00 106 11/07/16 01:00 100 11/07/16 00:00 102 11/06/16 23:00 108 11/06/16 23:00 98.2 108 16 110/72 92 11/06/16 22:00 101 11/06/16 21:00 115 11/06/16 20:01 92 Nasal Cannula 4.00 11/06/16 20:00 102 11/06/16 19:00 111 11/06/16 19:00 98.4 111 18 102/78 91 I/O 11/06/16 11/06/16 11/06/16 11/07/16 11/07/16 11/07/16 07:00 15:00 23:00 07:00 15:00 23:00 Intake Total 720 ml 360 ml Output Total 1500 ml 800 ml Balance -780 ml -440 ml Intake Oral 720 ml 360 ml Output Urine Total 1500 ml 800 ml # Bowel Movements 1 Result Diagram: 11/07/160 11/07/16 0440 Imaging Alert, fully oriented Lungs: ventilated Heart: S1, S2 regular abdomen: obese, no mass Ext: no edema Last Impressions Chest X-Ray 11/06/16 4093 Signed Impressions: Service Date/Time: October 13:25 - CONCLUSION: 1. Cardiomegaly. 2. Scattered bibasilar atelectactic changes. Darin Singh MD Active Medications Apixaban (Eliquis) 2.5 mg BID PO Last administered on 11/07/16 09:40; Admin Dose 2.5 MG; Start 11/06/16 at 21:00 Apixaban (Eliquis) 5 mg HS PO; Start 11/06/16 at 21:00; Stop 11/06/16 at 21:00; Status DC Budesonide/ Formoterol Fumarate (Symbicort 80-4.5 Mcg Inh) 1 puff DAILY INH Last administered on 11/07/16 09:39; Admin Dose 1 PUFF; Start 11/07/16 at 09:00 Bumetanide (Bumetanide) 1 mg HS PO Last administered on 11/06/16 21:07; Admin Dose 1 MG; Start 11/06/16 at 21:00 Diltiazem HCl (Cardizem Cd) 120 mg DAILY PO Last administered on 11/07/16 09:40 ; Admin Dose 120 MG; Start 11/07/16 at 09:00 Finasteride (Proscar) 5 mg DAILY PO Last administered on 11/07/16 09:39; Admin Dose 5 MG; Start 11/07/16 at 09:00 IV Flush (NS Flush) 2 ml BID FLUSH Last administered on 11/07/16 09:39; Admin Dose 2 ML; Start 11/06/16 at 21:00 Levothyroxine Sodium (Synthroid) 150 mcg DAILY@06 PO Last administered on 06:00; Admin Dose 150 MCG; Start 11/07/16 at 06:00 Nebivolol (Bystolic) 5 mg DAILY PO Last administered on 11/07/16 09:40; Admin Dose 5 MG; Start 11/07/16 at 09:00 Non-Formulary Medication 5 mg DAILY PO; Start 11/07/16 at 09:00; Stop 11/07/16 at 09:00; Status DC Pantoprazole Sodium (Protonix) 20 mg DAILYAC PO Last administered on 11/07/16 09:40; Admin Dose 20 MG; Start 11/07/16 at 08:00 Patient Own Medication PT OWN MED: (Linagliptin (Tradjenta)... DAILY PO; Start 11/07/16 at 09:00; Status Hold Prednisone (Deltasone) 5 mg DAILY PO Last administered on 11/07/16 09:40; Admin Dose 5 MG; Start 11/07/16 at 09:00 Sertraline HCl (Zoloft) 50 mg DAILY PO Last administered on 11/07/16 09:40; Admin Dose 50 MG; Start 11/07/16 at 09:00 Tamsulosin HCl (Flomax) 0.4 mg HS PO Last administered on 11/06/16 21:08; Admin Dose 0.4 MG; Start 11/06/16 at 21:00 Tiotropium [place] (Spiriva Inh) 18 mcg DAILY INH Last administered on 09:39; Admin Dose 18 MCG; Start 11/07/16 at 09:00 Assessment and Plan Problem List: (1) HTN (hypertension) Status: Chronic Plan: Possible left atrial tach. Was cardioverted. In sinus rhythm. Doing well If back in atrial tach, then ablation will be considered If stable, can be DH in AM Follow up as OP (2) Atrial fibrillation with rapid ventricular response Status: Resolved Plan: IN sinus rhythm BP ok Problem Qualifiers (1) HTN (hypertension): Qualified Code: I10 - Essential hypertension Matilde Peters MD Nov 07, 2016 18:27
--- NOTE | 2016-11-07 18:43 | MA ---
cc: WADE JAVIER M.D. DATE: 11/07/2016 INDICATION Mr. Bennett is an 81-year-old gentleman with atrial tachyarrhythmia, COPD, pneumonia, a previous ablation for atrial fibrillation to undergo cardioversion. The risks, the nature and the benefit of the procedure are clearly stated to him. The risks include cardiac arrest, need for a pacing support and even . The patient understood and agreed to proceed. PROCEDURE After written informed consent was obtained, the patient was evaluated by anesthesiologist. Anterolateral pads were placed. Subsequently a 200 sync biphasic joule delivered that converted the patient into sinus rhythm. No incident to report. The patient tolerated the procedure. CONCLUSION Successful cardioversion. RECOMMENDATION The patient going to be observed. If stable can be discharged home in the morning. MD LORENZO Newman/SILVA /6:24 PM /6:30 PM
[2016-11-07] MEDS: TAMSULOSIN HCL 0.4 MG CAP PO SCH (20:53)
[2016-11-08] VITALS (15 sets, daily range): BP systolic 80–104; BP diastolic 55–85; PULSE 72–88; RESP 16–22; TEMP 97.3–97.6; O2SAT 88–94
[2016-11-08] MEDS: LEVOTHYROXINE SODIUM 150 MCG TAB PO SCH (05:52)
[2016-11-08] MEDS: INSULIN ASPART SUPPLEMENTAL SCALE SQ SCH (05:54)
[2016-11-08] MEDS: BUMETANIDE 1 MG TAB PO SCH (07:00)
[2016-11-08] MEDS: RESP: ALBUTEROL 2.5 MG/IPRATROPIUM 0.5 MG NEB (SCH) NEB (08:00)
--- NOTE | 2016-11-08 08:43 | PD.CARD.PN ---
Subjective Subjective Remarks no complaints telemetry NSR with few episodes of Afib Objective Medications Current Medications Medications (Trade) Dose Ordered Sig/Alexis Route Start Time Stop Time Status Last Admin (NS Flush) 2 ml UNSCH PRN FLUSH 11/06/16 15:30 (NS Flush) 2 ml BID FLUSH 11/06/16 21:00 11/07/16 20:54 (Tylenol) 650 mg Q4H PRN PO 11/06/16 15:30 (Tylenol) 650 mg Q6H PRN PO 11/06/16 15:30 (Narcan Inj) 0.4 mg UNSCH PRN IV 11/06/16 15:30 (D50w (Vial) Inj) 25 ml UNSCH PRN IV PUSH 11/06/16 17:30 (Glucagon Inj) 1 mg UNSCH PRN OTHER 11/06/16 17:30 (Zofran Inj) 4 mg Q6H PRN IV 11/06/16 17:30 (Fransisca-Colace) 1 tab BID PRN PO 11/06/16 17:30 (Restoril) 15 mg HS PRN PO 11/06/16 17:30 (Bumetanide) 1 mg HS PO 11/06/16 21:00 11/07/16 20:52 (Proscar) 5 mg DAILY PO 11/07/16 09:00 11/07/16 09:39 (Synthroid) 150 mcg DAILY@06 PO 11/07/16 06:00 11/08/16 05:52 (Bystolic) 5 mg DAILY PO 11/07/16 09:00 11/07/16 09:40 (Deltasone) 5 mg DAILY PO 11/07/16 09:00 11/07/16 09:40 (Protonix) 20 mg DAILYAC PO 11/07/16 08:00 11/07/16 09:40 (Zoloft) 50 mg DAILY PO 11/07/16 09:00 11/07/16 09:40 (Flomax) 0.4 mg HS PO 11/06/16 21:00 11/07/16 20:53 (Spiriva Inh) 18 mcg DAILY INH 11/07/16 09:00 11/07/16 09:39 (Cardizem Cd) 120 mg DAILY PO 11/07/16 09:00 11/07/16 09:40 (Symbicort 80-4.5 Mcg Inh) 1 puff DAILY INH 11/07/16 09:00 11/07/16 09:39 Patient Own Medication PT OWN MED: (Linagliptin (Tradjenta)... DAILY PO 11/07/16 09:00 Hold (Eliquis) 2.5 mg BID PO 11/06/16 21:00 11/07/16 20:53 Vital Signs / I&O Vital Signs Date Time Temp Pulse Resp B/P Pulse Ox O2 Delivery O2 Flow Rate FiO2 11/08/16 06:00 80 11/08/16 05:00 82 11/08/16 04:40 82/58 11/08/16 04:36 97.5 75 18 82/67 94 11/08/16 04:08 97.4 84 16 80/55 92 11/08/16 04:00 72 11/08/16 03:00 72 11/08/16 02:00 72 11/08/16 01:00 74 11/08/16 00:00 97.6 85 20 101/71 92 11/08/16 00:00 81 11/07/16 23:00 82 11/07/16 22:00 84 11/07/16 21:00 88 11/07/16 20:41 93 Nasal Cannula 6.00 11/07/16 20:10 89 115/87 92 11/07/16 20:05 87 124/83 91 11/07/16 20:00 84 11/07/16 20:00 97.9 87 18 124/83 91 11/07/16 19:50 87 114/87 91 11/07/16 19:31 84 103/77 91 11/07/16 19:25 84 104/77 95 11/07/16 19:20 84 98/74 94 11/07/16 19:15 85 97/73 93 11/07/16 19:05 83 105/78 11/07/16 19:00 85 11/07/16 19:00 93/72 11/07/16 18:25 82 18 123/87 88 11/07/16 18:00 110 11/07/16 17:00 110 11/07/16 16:00 112 11/07/16 15:00 111 11/07/16 15:00 97.4 115 20 114/77 88 11/07/16 14:00 112 11/07/16 13:00 112 11/07/16 12:00 111 11/07/16 11:00 97.8 114 20 109/80 89 11/07/16 11:00 112 11/07/16 10:00 112 11/07/16 09:00 112 I/O 11/07/16 11/07/16 11/07/16 11/08/16 11/08/16 11/08/16 07:00 15:00 23:00 07:00 15:00 23:00 Intake Total 720 ml 360 ml 980 ml Output Total 1500 ml 800 ml 450 ml Balance -780 ml -440 ml 530 ml Intake Oral 720 ml 360 ml 480 ml IV Total 500 ml Output Urine Total 1500 ml 800 ml 450 ml # Bowel Movements 1 0 Imaging Last Impressions Chest X-Ray 11/06/16 1304 Signed Impressions: Service Date/Time: October 13:25 - CONCLUSION: 1. Cardiomegaly. 2. Scattered bibasilar atelectactic changes. Darin Singh MD Assessment and Plan Problem List: (1) Atrial fibrillation with rapid ventricular response Assessment and Plan: s/p DCCV now in NSR Cont rate control Cont OAC Sign off Elvin Pereira MD Nov 08, 2016 08:43
--- NOTE | 2016-11-08 08:56 | EKG ---
Date Performed: 11/07/2016 Time Performed: 00:52:18 PTAGE: 81 years EKG: Probable atrial flutter with ventricular response of 109 Right bundle branch block Diffused nonspecific ST-T change Abnormal ECG PREVIOUS TRACING : 11/06/2016 13.28 Since previous tracing, no significant change noted DOCTOR: Radhames Saeed Interpretating Date/Time 11/08/2016 08:56:26
--- NOTE | 2016-11-08 08:56 | EKG ---
Date Performed: 11/06/2016 Time Performed: 13:28:46 PTAGE: 81 years EKG: ATRIAL FLUTTER WITH RAPID VENTRICULAR RESPONSE OF 110 INCOMPLETE RIGHT BUNDLE BRANCH BLOCK NONSPECIFIC ST-T CHANGE ABNORMAL ECG PREVIOUS TRACING : 04/25/2016 23.50 Since previous tracing, the atrial flutter is new. Clinical correlation recommended. DOCTOR: Radhames Saeed Interpretating Date/Time 11/08/2016 08:55:09
[2016-11-08] MEDS: NEBIVOLOL 5 MG TAB PO SCH (09:00)
[2016-11-08] MEDS ORDERED: DILTIAZEM-CD 120 MG CAP ER PO SCH ×2 (09:00→10:00)
[2016-11-08] MEDS: TIOTROPIUM BROMIDE 18 MCG INH INH SCH (09:30)
[2016-11-08] MEDS: BUDESONIDE-FORMOTEROL 80/4.5 MCG INHALER INH SCH (09:30)
[2016-11-08] MEDS: FINASTERIDE 5 MG TAB PO SCH (09:33)
[2016-11-08] MEDS: SODIUM CHLORIDE 0.9% FLUSH 5 ML FLUSH FLUSH SCH (09:33)
[2016-11-08] MEDS: PANTOPRAZOLE SOD 20 MG DELAYED RELEASE TAB PO SCH (09:33)
[2016-11-08] MEDS: APIXABAN 2.5 MG TABLET PO SCH (09:33)
[2016-11-08] MEDS: predniSONE 5 MG TAB PO SCH (09:33)
[2016-11-08] MEDS: SERTRALINE HCL 50 MG TAB PO SCH (09:33)
--- NOTE | 2016-11-08 10:15 | HHI.PR ---
Subjective Remarks Follow-up atrial flutter with rapid ventricular response 11/07/16-patient seen and examined, still in atrial flutter/fibrillation however denies any chest pain but still complains of shortness of breath. Plan for cardiac ablation today 11/08/16-patient seen and examined; s/p DCCV and now rate control however with low BP but asymptomatic. States, he was up and ambulated and denies any complication. Objective Vitals Vital Signs Date Time Temp Pulse Resp B/P Pulse Ox O2 Delivery O2 Flow Rate FiO2 11/08/16 06:00 80 11/08/16 05:00 82 11/08/16 04:40 82/58 11/08/16 04:36 97.5 75 18 82/67 94 11/08/16 04:08 97.4 84 16 80/55 92 11/08/16 04:00 72 11/08/16 03:00 72 11/08/16 02:00 72 11/08/16 01:00 74 11/08/16 00:00 97.6 85 20 101/71 92 11/08/16 00:00 81 11/07/16 23:00 82 11/07/16 22:00 84 11/07/16 21:00 88 11/07/16 20:41 93 Nasal Cannula 6.00 11/07/16 20:10 89 115/87 92 11/07/16 20:05 87 124/83 91 11/07/16 20:00 84 11/07/16 20:00 97.9 87 18 124/83 91 11/07/16 19:50 87 114/87 91 11/07/16 19:31 84 103/77 91 11/07/16 19:25 84 104/77 95 11/07/16 19:20 84 98/74 94 11/07/16 19:15 85 97/73 93 11/07/16 19:05 83 105/78 11/07/16 19:00 85 11/07/16 19:00 93/72 11/07/16 18:25 82 18 123/87 88 11/07/16 18:00 110 11/07/16 17:00 110 11/07/16 16:00 112 11/07/16 15:00 111 11/07/16 15:00 97.4 115 20 114/77 88 11/07/16 14:00 112 11/07/16 13:00 112 11/07/16 12:00 111 11/07/16 11:00 97.8 114 20 109/80 89 11/07/16 11:00 112 I/O 11/07/16 11/07/16 11/07/16 11/08/16 11/08/16 11/08/16 07:00 15:00 23:00 07:00 15:00 23:00 Intake Total 720 ml 360 ml 980 ml Output Total 1500 ml 800 ml 450 ml Balance -780 ml -440 ml 530 ml Intake Oral 720 ml 360 ml 480 ml IV Total 500 ml Output Urine Total 1500 ml 800 ml 450 ml # Bowel Movements 1 0 Result Diagram: 11/07/16 0440 11/07/16 0440 Imaging Last Impressions Chest X-Ray 11/06/16 1304 Signed Impressions: Service Date/Time: October 13:25 - CONCLUSION: 1. Cardiomegaly. 2. Scattered bibasilar atelectactic changes. Darin Singh MD Objective Remarks GENERAL: NAD SKIN: Warm and dry. HEAD: Normocephalic. EYES: No scleral icterus. No injection or drainage. NECK: Supple, trachea midline. No JVD or lymphadenopathy. CARDIOVASCULAR: Irregular Regular rate and rhythm without murmurs, gallops, or rubs. RESPIRATORY: Breath sounds equal bilaterally. No accessory muscle use. GASTROINTESTINAL: Abdomen soft, non-tender, nondistended. MUSCULOSKELETAL: No cyanosis, or edema. BACK: Nontender without obvious deformity. No CVA tenderness. A/P Problem List: (1) Atrial fibrillation with rapid ventricular response ICD Code: I48.91 Status: Resolved (2) COPD, end-stage Status: Acute (3) chronic dyspnea, chronic respiratory failure Status: Acute (4) history of asbestos exposure Status: Acute (5) history of neuropathy Status: Acute (6) ventral hernia Status: Acute (7) PVD Status: Acute (8) hyperlipidemia Status: Acute (9) hypertension Status: Acute (10) BPH (benign prostatic hypertrophy) ICD Code: N40.0 Status: Acute (11) CKD (chronic kidney disease), stage III ICD Code: N18.3 Status: Chronic (12) history of bladder cancer status post TURBT Status: Acute Assessment and Plan 81-year-old male with 1-History of atrial fibrillation, Status post ablation on 04/25/16 now presents with atrial flutter with RVR : Appreciate input from cardiology and patient is s /p DCCV 11/07/16 and now rate control. Continue Eliquis and Cardizem . 2-D echo with EF 60-65% and continuing telemetry monitoring 2-Acute kidney injury superimposed on chronic kidney disease stage III -avoid all nephrotoxic drug, Fluid restriction to <2L. monitor BUN and creatinine 3-Diabetes mellitus2. on Accu-Cheks with sliding scale coverage and continue Tradjenta, Levemir 5 units subcutaneous at bedtime. 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
[2016-11-08] MEDS ORDERED: APIX2.5T PO (10:18)
[2016-11-08] MEDS ORDERED: CARD120C4 PO (10:18)
--- NOTE | 2016-11-08 10:23 | HHI.DS ---
Discharge Summary Admission Date Nov 06, 2016 at 15:33 Discharge Date: Nov 08, 2016 Admitting Diagnosis Atrial flutter with RVR (1) Atrial fibrillation with rapid ventricular response ICD Code: I48.91 (2) COPD, end-stage (3) chronic dyspnea, chronic respiratory failure (4) history of asbestos exposure (5) history of neuropathy (6) ventral hernia (7) PVD (8) hyperlipidemia (9) hypertension (10) BPH (benign prostatic hypertrophy) ICD Code: N40.0 (11) CKD (chronic kidney disease), stage III ICD Code: N18.3 (12) history of bladder cancer status post TURBT Procedures DCCV Brief History - From Admission 81-year-old male with a history of chronic respiratory failure, COPD, asbestosis, atria flutter/fibrillation came to the emergency department for evaluation of fast heart rate of 112 without any complaint of chest pain. Patient states he usually check his heart rate while checking his blood pressure , and notices a fast Heart rate morning and decided to come to the hospital for further workup. He recently completed a ten-day course of by mouth antibiotics for upper respiratory infection. He has no other complaints. CBC/BMP: 11/07/16 0440 11/07/16 0440 Significant Findings Laboratory Tests Test 11/06/16 11/07/16 11/07/16 13:11 00:49 04:40 White Blood Count 11.1 TH/MM3 (4.0-11.0) Red Blood Count 6.79 MIL/MM3 6.62 MIL/MM3 (4.50-5.90) (4.50-5.90) Mean Corpuscular Volume 74.0 FL 72.9 FL (80.0-100.0) (80.0-100.0) Mean Corpuscular Hemoglobin 23.7 PG 24.2 PG (27.0-34.0) (27.0-34.0) Red Cell Distribution Width 20.4 % 20.5 % (11.6-17.2) (11.6-17.2) Neutrophils (%) (Auto) 83.9 % 74.5 % (16.0-70.0) (16.0-70.0) Lymphocytes (%) (Auto) 7.0 % (9.0-44.0) Neutrophils # (Auto) 9.3 TH/MM3 (1.8-7.7) Lymphocytes # (Auto) 0.8 TH/MM3 (1.0-4.8) Ovalocytes 1+ (NORMAL) 1+ (NORMAL) Prothrombin Time 14.2 SEC (9.8-11.6) Blood Urea Nitrogen 37 MG/DL (7-18) 32 MG/DL (7-18) Creatinine 1.80 MG/DL 1.45 MG/DL (0.60-1.30) (0.60-1.30) Estimat Glomerular Filtration 36 ML/MIN (>89) 47 ML/MIN (>89) Rate Random Glucose 171 MG/DL 70 MG/DL (74-106) (74-106) Calcium Level 8.4 MG/DL (8.5-10.1) B-Type Natriuretic Peptide 396 PG/ML (0-100) Total Creatine Kinase 35 U/L (39-308) Monocytes (%) (Auto) 9.5 % (0.0-8.0) Neutrophils % (Manual) 75 % (16-70) Monocytes % 10 % (0-8) Myelocytes 1 % (0-0) Total Bilirubin 1.4 MG/DL (0.2-1.0) Total Protein 6.3 GM/DL (6.4-8.2) Imaging Last Impressions Chest X-Ray 11/06/16 1304 Signed Impressions: Service Date/Time: October 13:25 - CONCLUSION: 1. Cardiomegaly. 2. Scattered bibasilar atelectactic changes. Darin Singh MD PE at Discharge GENERAL: NAD SKIN: Warm and dry. HEAD: Normocephalic. EYES: No scleral icterus. No injection or drainage. NECK: Supple, trachea midline. No JVD or lymphadenopathy. CARDIOVASCULAR: Irregular Regular rate and rhythm without murmurs, gallops, or rubs. RESPIRATORY: Breath sounds equal bilaterally. No accessory muscle use. GASTROINTESTINAL: Abdomen soft, non-tender, nondistended. MUSCULOSKELETAL: No cyanosis, or edema. BACK: Nontender without obvious deformity. No CVA tenderness. Hospital Course Cardiology was consulted and patient underwent direct cardioversion on . He was continued on Eliquis, Cardizem and a 2-D echo was obtained with EF of 60-65%. Oral antihypertensive Bystolic was put on hold secondary to low BP. Patient was started on sliding scale insulin and continue on his home medications and remained normoglycemic throughout hospitalization. Other medications for his chronic medical conditions were continued. Vitals remained stable prior to discharge. Pt Condition on Discharge: Stable Discharge Disposition: Discharge Home Discharge Time: <= 30 minutes Discharge Instructions DIET: Follow Instructions for: Heart Healthy Diet, Diabetic Diet Activities you can perform: Regular-No Restrictions Follow up Referrals: Cardiology PCP Follow-up - 1 Week New Medications: Apixaban (Eliquis) 2.5 Mg Tab 2.5 MG PO BID Prevent Blood Clot #60 TAB Diltiazem CD 24 HR (Cardizem CD 24 HR) 120 Mg Caper 120 MG PO DAILY Regulate Heart Beat #30 CAP Continued Medications: Albuterol 8.5 GM Inh (Proair Hfa 8.5 GM Inh) 90 Mcg/Act Aer 2 PUFF INH Q4-6H 108 mcg/actuation PRN SHORTNESS OF BREATH #1 Ref 0 INHALER Bumetanide (Bumetanide) 1 Mg Tab 1 MG PO HS #30 Ref 0 TAB Diltiazem (Diltiazem) 120 Mg Tab 120 MG PO DAILY Angina #120 Ref 0 TAB Ferrous Sulfate (Iron) 325 Mg Tab 325 MG PO DAILY Take Nutritional Supplement Ref 0 TAB Finasteride (Finasteride) 5 Mg Tab 5 MG PO DAILY Do not crush. Manage Prostate Problems #30 Ref 0 TAB Fluticasone-Salmeterol Inh (Advair Diskus Inh) 100-50 Mcg/Blist Aer 1 PUFF INH DAILY Rinse mouth after use. Asthma Management #1 Ref 0 INHALER Levothyroxine (Synthroid) 150 Mcg Tab 150 MCG PO DAILY Thyroid #30 Ref 0 TAB Linagliptin (Tradjenta) 5 Mg Tab 5 MG PO DAILY Blood Sugar Management #30 Ref 0 TAB Prednisone (Prednisone) 5 Mg Tab 5 MG PO DAILY Ref 0 TAB Rabeprazole (Rabeprazole) 20 Mg Tab 20 MG PO DAILY Reflux #30 Ref 0 TAB Sertraline (Sertraline) 50 Mg Tab 50 MG PO DAILY #30 Ref 0 TAB Tadalafil (Cialis) 5 Mg Tab 5 MG PO DAILY Do not exceed 1 dose/day. Ref 0 TAB Tamsulosin (Tamsulosin) 0.4 Mg Cap 0.4 MG PO HS Manage Prostate Problems #30 Ref 0 CAP Tiotropium Inh (Spiriva Handihaler) 18 Mcg Cap 18 MCG INH DAILY 1 capsule = 18 mcg COPD #30 Ref 0 CAP Discontinued Medications: Albuterol Liq (Albuterol Liq) 2 Mg/5 Ml Syrp 0.4 MG PO BID PRN SOB/WHEEZING #30 Ref 0 ML Apixaban (Eliquis) 5 Mg Tab 10 MG PO AC BREAKFAST Blood Clot Prevention #14 Ref 0 TAB Apixaban (Eliquis) 5 Mg Tab 5 MG PO HS Blood Clot Prevention #60 Ref 0 TAB Bumetanide (Bumetanide) 2 Mg Tab 2 MG PO AC BREAKFAST Ref 2 TAB Eszopiclone (Eszopiclone) 3 Mg Tab 3 MG PO HS PRN INSOMNIA #30 Ref 0 TAB Geovany Logan MD Nov 08, 2016 10:23
== END 2016-11-08 12:35 | disposition home or self-care (01) | DRG 308 ==
LOC: NEPC 12:31 → NEDH 15:02 → OBSVTOIN 15:33 → HCIS 17:49
PROVIDERS: ADMIT Hospitalist; ATTEND Hospitalist
PROC: 5A2204Z Restoration of Cardiac Rhythm, Single (ICD-10-PCS; principal; 2016-11-07)
DX: I48.91 Unspecified atrial fibrillation (principal); J18.9 Pneumonia, unspecified organism; N17.9 Acute kidney failure, unspecified; I13.0 Hypertensive heart and chronic kidney disease with heart failure and stage 1 through stage 4 chronic kidney disease, or unspecified chronic kidney disease; J96.11 Chronic respiratory failure with hypoxia; J44.0 Chronic obstructive pulmonary disease with (acute) lower respiratory infection; I50.32 Chronic diastolic (congestive) heart failure; E11.22 Type 2 diabetes mellitus with diabetic chronic kidney disease; G62.9 Polyneuropathy, unspecified; N18.3 Chronic kidney disease, stage 3 (moderate); Z77.090 Contact with and (suspected) exposure to asbestos; K43.9 Ventral hernia without obstruction or gangrene; I48.92 Unspecified atrial flutter; E78.5 Hyperlipidemia, unspecified; E03.9 Hypothyroidism, unspecified; I25.10 Atherosclerotic heart disease of native coronary artery without angina pectoris; K21.9 Gastro-esophageal reflux disease without esophagitis; N40.0 Benign prostatic hyperplasia without lower urinary tract symptoms; Z85.51 Personal history of malignant neoplasm of bladder; Z86.73 Personal history of transient ischemic attack (TIA), and cerebral infarction without residual deficits; J61 Pneumoconiosis due to asbestos and other mineral fibers
CPT/HCPCS: 71010; 80048; 80053; 82550; 82948; 83735; 83880; 84484; 85007; 85025; 85027; 85610; 85730; 92960; 93005; 93306; 94640; 94664; J1815; J7512

== ENCOUNTER → 2016-11-24 | Outpatient (CLI) | payer MEDICARE, BC ==
[~2016-11-24] MED LIST changes: -ACIP20TA19 PO; +ADVA100A INH; -ADVA250A INH; -ALBU8I INH; +ALBUAER3 INH; +APIX2.5T PO; -APIX5 PO; +BYST5TAB2 PO; +CARD120C4 PO; -CIAL20TA PO; +CIAL5TAB PO; +DILT120T PO; -DILTCD240 PO; -ECOT81TA2 PO; -ESZO3 PO; +FERR1TAB36 PO; +FINA5TAB2 PO; -FINA5TAB77 PO; -LEVEMIR SQ; -LEVO.1 PO; +LEVO.15 PO; -NEBI5 PO; -POTA20IN3 PO; -PRED10 PO; +PRED5TAB PO; +RABE1TAB PO; +SPIRCAP INH; +TAMS0.4C4 PO; -TAMS0.4C67 PO
[2016-11-24 13:09] LABS: AUTOMATED NEUTROPHIL # 5.7 TH/MM3 (1.8-7.7); BASOPHIL # 0.1 TH/MM3 (0-0.2); BASOPHIL % 1.8 % (0.0-2.0); EOSINOPHIL # 0.2 TH/MM3 (0-0.4); EOSINOPHIL % 2.6 % (0.0-4.0); HEMATOCRIT 52.7 % (39.0-51.0); LYMPH % 14.6 % (9.0-44.0); LYMPHOCYTE # 1.2 TH/MM3 (1.0-4.8); MEAN CELL VOLUME 74.2 FL (80.0-100.0); MEAN CORPUSCULAR HEMOGLOBIN 23.8 PG (27.0-34.0); MONO % 9.8 % (0.0-8.0); NEUT % 71.2 % (16.0-70.0); PLATELET COUNT 350 TH/MM3 (150-450); RED BLOOD COUNT 7.11 MIL/MM3 (4.50-5.90); RED CELL DISTRIBUTION WIDTH 21.4 % (11.6-17.2)
[2016-11-24 13:14] LABS: HEMO FLAGS AUTO DIFF
[2016-11-24 13:44] LABS: ALT (GPT) 22 U/L (12-78); ANION GAP 6 MEQ/L (5-15); AST (GOT) 19 U/L (15-37); BICARBONATE 31.9 MEQ/L (21.0-32.0); BLOOD UREA NITROGEN 27 MG/DL (7-18); CHLORIDE 106 MEQ/L (98-107); GLOMERULAR FILTRATION RATE 45 ML/MIN (>89); GLUCOSE,FASTING 93 MG/DL (74-99); POTASSIUM 4.3 MEQ/L (3.5-5.1); SODIUM (NA) 144 MEQ/L (136-145)
[2016-11-24 13:54] LABS: ALKALINE PHOSPHATASE 75 U/L (45-117); HDL CHOLESTEROL 52.1 MG/DL (40.0-60.0); LDL CHOLESTEROL 23 MG/DL (0-99); TOTAL BILIRUBIN ADULT 1.3 MG/DL (0.2-1.0)
[2016-11-24 13:58] LABS: OVALOCYTES 1+ (NORMAL); PLATELET ESTIMATE SMEAR NORMAL (NORMAL); PLATELET MORPHOLOGY ENLARGED (NORMAL); SCAN/DIFF AUTO DIFF CONFIRMED
[2016-11-24 16:52] LABS: HEMOGLOBIN A1a 1.1 %; HEMOGLOBIN A1b 2.1 %; HEMOGLOBIN Ao 82.9 %; HEMOGLOBIN LA1C 2.2 %; HEMOGLOBIN P3 6.1 %
== END ==
LOC: PLAB 10:02
PROVIDERS: ATTEND Family Medicine
DX: E03.9 Hypothyroidism, unspecified (principal)
CPT/HCPCS: 36415; 80053; 80061; 83036; 84443; 85025

== ENCOUNTER → 2016-12-10 | Outpatient (CLI) | payer MEDICARE, BC ==
[2016-12-10 16:14] LABS: AUTOMATED NEUTROPHIL # 6.9 TH/MM3 (1.8-7.7); BASOPHIL # 0.1 TH/MM3 (0-0.2); BASOPHIL % 1.1 % (0.0-2.0); EOSINOPHIL # 0.1 TH/MM3 (0-0.4); EOSINOPHIL % 1.2 % (0.0-4.0); HEMATOCRIT 54.8 % (39.0-51.0); HEMO FLAGS AUTO DIFF; LYMPH % 11.4 % (9.0-44.0); MEAN CELL VOLUME 74.7 FL (80.0-100.0); MEAN CORPUSCULAR HEMOGLOBIN 24.4 PG (27.0-34.0); MEAN CORPUSCULAR HGB CONC 32.6 % (32.0-36.0); MONO % 8.5 % (0.0-8.0); NEUT % 77.8 % (16.0-70.0); PLATELET COUNT 374 TH/MM3 (150-450); RED BLOOD COUNT 7.34 MIL/MM3 (4.50-5.90); RED CELL DISTRIBUTION WIDTH 21.1 % (11.6-17.2); WHITE BLOOD COUNT 8.9 TH/MM3 (4.0-11.0)
[2016-12-10 16:20] LABS: BICARBONATE 30.3 MEQ/L (21.0-32.0); POTASSIUM 3.8 MEQ/L (3.5-5.1)
[2016-12-10 16:41] LABS: BLOOD, URINE NEG (NEG); GLUCOSE,URINE NEG (NEG); KETONE, URINE NEG (NEG); MUCUS URINE FEW /lpf (OCC); NITRITE,URINE NEG (NEG); URINE COLOR YELLOW (YELLW/STRAW)
[2016-12-10 16:52] LABS: COMMENT (UR) CULT NOT INDICATED; CULTURE IF INDICATED CULT NOT INDICATED
[2016-12-10 17:11] LABS: ACANTHOCYTES OCC (NORMAL); KERATOCYTES OCC (NORMAL); OVALOCYTES 1+ (NORMAL); PLATELET ESTIMATE SMEAR HIGH (NORMAL); PLATELET MORPHOLOGY ENLARGED (NORMAL); SCAN/DIFF AUTO DIFF CONFIRMED
== END ==
LOC: PLAB 11:26
PROVIDERS: ATTEND Internal Medicine Nephrology
DX: N39.0 Urinary tract infection, site not specified (principal); N18.3 Chronic kidney disease, stage 3 (moderate)
CPT/HCPCS: 36415; 80069; 81001; 85025

== ENCOUNTER → 2017-05-29 | Outpatient (CLI) | payer MEDICARE, BC ==
[2017-05-29 14:08] LABS: ALT (GPT) 22 U/L (12-78); ANION GAP 9 MEQ/L (5-15); AST (GOT) 20 U/L (15-37); BICARBONATE 32.7 MEQ/L (21.0-32.0); BLOOD UREA NITROGEN 46 MG/DL (7-18); CHLORIDE 100 MEQ/L (98-107); GLOMERULAR FILTRATION RATE 35 ML/MIN (>89); GLUCOSE,FASTING 98 MG/DL (74-99); POTASSIUM 3.3 MEQ/L (3.5-5.1); SODIUM (NA) 142 MEQ/L (136-145)
[2017-05-29 14:18] LABS: ALKALINE PHOSPHATASE 64 U/L (45-117); HDL CHOLESTEROL 47.3 MG/DL (40.0-60.0); LDL CHOLESTEROL 33 MG/DL (0-99); LDL CHOLESTEROL DIRECT 53 MG/DL (0-99)
[2017-05-29 17:32] LABS: HEMOGLOBIN A1a 1.1 %; HEMOGLOBIN A1b 2.6 %; HEMOGLOBIN Ao 80.4 %; HEMOGLOBIN LA1C 2.4 %; HEMOGLOBIN P3 7.2 %
== END ==
LOC: PLAB 10:40
PROVIDERS: ATTEND Family Medicine
DX: I10 Essential (primary) hypertension (principal); E78.5 Hyperlipidemia, unspecified; E03.9 Hypothyroidism, unspecified; E11.9 Type 2 diabetes mellitus without complications
CPT/HCPCS: 36415; 80053; 80061; 83036; 83721; 84443

== ENCOUNTER → 2017-07-10 | Outpatient (CLI) | payer MEDICARE, BC ==
[2017-07-10 13:52] LABS: AUTOMATED NEUTROPHIL # 8.3 TH/MM3 (1.8-7.7); BASOPHIL # 0.3 TH/MM3 (0-0.2); BASOPHIL % 2.8 % (0.0-2.0); EOSINOPHIL # 0.2 TH/MM3 (0-0.4); EOSINOPHIL % 1.9 % (0.0-4.0); HEMATOCRIT 58.4 % (39.0-51.0); LYMPH % 11.4 % (9.0-44.0); LYMPHOCYTE # 1.3 TH/MM3 (1.0-4.8); MEAN CELL VOLUME 83.4 FL (80.0-100.0); MEAN CORPUSCULAR HEMOGLOBIN 27.9 PG (27.0-34.0); MEAN CORPUSCULAR HGB CONC 33.4 % (32.0-36.0); MONO % 8.6 % (0.0-8.0); NEUT % 75.3 % (16.0-70.0); PLATELET COUNT 364 TH/MM3 (150-450); RED CELL DISTRIBUTION WIDTH 15.6 % (11.6-17.2)
[2017-07-10 13:54] LABS: HEMO FLAGS AUTO DIFF
[2017-07-10 14:16] LABS: BLOOD, URINE NEG (NEG); GLUCOSE,URINE NEG (NEG); KETONE, URINE NEG (NEG); NITRITE,URINE NEG (NEG); URINE COLOR YELLOW (YELLW/STRAW)
[2017-07-10 14:29] LABS: ANION GAP 7 MEQ/L (5-15); BICARBONATE 31.4 MEQ/L (21.0-32.0); BLOOD UREA NITROGEN 47 MG/DL (7-18); CHLORIDE 97 MEQ/L (98-107); GLOMERULAR FILTRATION RATE 39 ML/MIN (>89); GLUCOSE,FASTING 128 MG/DL (74-99); POTASSIUM 3.2 MEQ/L (3.5-5.1); POTASSIUM 3.4 MEQ/L (3.5-5.1); SODIUM (NA) 137 MEQ/L (136-145)
[2017-07-10 14:31] LABS: COMMENT (UR) CULT NOT INDICATED; CULTURE IF INDICATED CULT NOT INDICATED
[2017-07-10 14:34] LABS: CREATINE KINASE 46 U/L (39-308)
[2017-07-10 14:36] LABS: BANDS 1 % (0-6); BASOPHILS 1 % (0-2); EOSINOPHILS 2 % (0-4); METAMYELOCYTES 1 % (0-1); MYELOCYTES 3 % (0-0); NEUTROPHIL # MANUAL DIFF 9.9 TH/MM3 (1.8-7.7); PLATELET ESTIMATE SMEAR NORMAL (NORMAL); PLATELET MORPHOLOGY ENLARGED (NORMAL); POLYS (SEG NEUTROPHILS) 85 % (16-70); SCAN/DIFF FINAL DIFF MANUAL; WBC DIFF SAMPLE 100
[2017-07-10 16:56] LABS: HEMOGLOBIN A1a 1.2 %; HEMOGLOBIN A1b 2.9 %; HEMOGLOBIN Ao 77.9 %; HEMOGLOBIN LA1C 2.8 %; HEMOGLOBIN P3 7.6 %
== END ==
LOC: PLAB 10:26
PROVIDERS: ATTEND Internal Medicine Nephrology
DX: I48.91 Unspecified atrial fibrillation (principal); N18.4 Chronic kidney disease, stage 4 (severe); D63.1 Anemia in chronic kidney disease; E11.22 Type 2 diabetes mellitus with diabetic chronic kidney disease; M79.1 Myalgia; R53.1 Weakness
CPT/HCPCS: 36415; 80048; 80069; 81001; 82550; 83036; 85007; 85027

== ENCOUNTER → 2017-09-08 | Outpatient (CLI) | payer MEDICARE, BC ==
[2017-09-08 13:33] LABS: BICARBONATE 32.5 MEQ/L (21.0-32.0); POTASSIUM 3.2 MEQ/L (3.5-5.1)
== END ==
LOC: PLAB 09:59
PROVIDERS: ATTEND Family Medicine
DX: I10 Essential (primary) hypertension (principal); E03.9 Hypothyroidism, unspecified
CPT/HCPCS: 36415; 80048; 84443

== ENCOUNTER → 2017-09-09 | Outpatient (CLI) | payer MEDICARE, BC ==
[2017-09-09 11:20] LABS: BLOOD GAS BASE EXCESS 3.8 mmol/L (-2-2); BLOOD GAS CARBOXYHEMOGLOBIN 1.4 % (0-4); BLOOD GAS HCO3 27 mmol/L (22-26); BLOOD GAS O2 HGB SATURATION 76 % (90-100); BLOOD GAS OXYGEN CONTENT 20.4 Vol % (12.0-20.0); BLOOD GAS PCO2 37 mmHg (38-42); BLOOD GAS PO2 42 mmHg (61-120); BLOOD GAS TOTAL HGB 19.3 G/DL (12.0-16.0); TEMP CORR TO 98.6
[2017-09-09 11:22] LABS: CRITICAL VALUE YES; DRAW SITE RT RADIAL; FIO2 21 %; NUMBER OF ARTERIAL PUNCTURES 1; STAT NO; ULNAR PULSE PRESENT
--- NOTE | 2017-09-09 12:10 | RADRPT ---
EXAM DATE/TIME: 09/09/2017 11:47 [facility] COMPARISON: No previous studies available for comparison. INDICATIONS : Shortness of breath with cough. RADIATION DOSE: 6.9 CTDIvol (mGy) MEDICAL HISTORY : Chronic obstructive pulmonary disease. SURGICAL HISTORY : None. ENCOUNTER: Initial ACUITY: >1 yr PAIN SCALE: 0/10 LOCATION: Bilateral chest TECHNIQUE: Volumetric scanning of the chest was performed. Using automated exposure control and adjustment of t he mA and/or kV according to patient size, radiation dose was kept as low as reasonably achievable to obtain optimal diagnostic quality images. DICOM format image data is available electronically for r eview and comparison. Follow-up recommendations for detected pulmonary nodules are based at a minimum on nodule size and pa tient risk factors according to Fleischner Society Guidelines. FINDINGS: LUNGS: There is no consolidation or pneumothorax. No concerning pulmonary nodule is visualized. PLEURAE: There is no pleural thickening or pleural effusion. MEDIASTINUM: The heart is mildly enlarged. A mild calcific calcified disease is seen in the thoracic aorta. There is no mediastinal or hilar lymphadenopathy. AXILLAE: Within normal limits. No lymphadenopathy. MUSCULOSKELETAL: Within normal limits for patient age. MISCELLANEOUS: The visualized upper abdominal organs demonstrate no acute abnormality. CONCLUSION: 1. No evidence of acute cardiopulmonary process. 2. No evidence of suspicious pulmonary nodules lymphadenopathy or pleural effusions. 3. Mild cardiomegaly. Sloan San MD on September 09, 2017 at 12:04 Board Certified Radiologist. This report was verified electronically.
== END ==
LOC: HRSP 10:33
DX: J44.9 Chronic obstructive pulmonary disease, unspecified (principal)
CPT/HCPCS: 36600; 71250; 82805; 94060; 94726; 94729

== ENCOUNTER → 2017-10-08 | Outpatient (CLI) | payer MEDICARE, BC ==
[2017-10-08 13:21] LABS: BILIRUBIN, URINE NEG (NEG); BLOOD, URINE NEG (NEG); GLUCOSE,URINE NEG (NEG); KETONE, URINE NEG (NEG); NITRITE,URINE NEG (NEG); URINE COLOR YELLOW (YELLW/STRAW); URINE LEUKOCYTE ESTERASE TRACE (NEG)
[2017-10-08 13:28] LABS: AUTOMATED NEUTROPHIL # 6.9 TH/MM3 (1.8-7.7); BASOPHIL # 0.1 TH/MM3 (0-0.2); BASOPHIL % 0.8 % (0.0-2.0); EOSINOPHIL # 0.1 TH/MM3 (0-0.4); EOSINOPHIL % 1.5 % (0.0-4.0); HEMATOCRIT 55.7 % (39.0-51.0); LYMPH % 13.8 % (9.0-44.0); LYMPHOCYTE # 1.3 TH/MM3 (1.0-4.8); MEAN CELL VOLUME 82.7 FL (80.0-100.0); MEAN CORPUSCULAR HEMOGLOBIN 28.2 PG (27.0-34.0); MEAN CORPUSCULAR HGB CONC 34.1 % (32.0-36.0); MEAN PLATELET VOLUME 9.2 FL (7.0-11.0); MONOCYTE # 0.7 TH/MM3 (0-0.9); NEUT % 75.9 % (16.0-70.0); PLATELET COUNT 391 TH/MM3 (150-450); RED BLOOD COUNT 6.73 MIL/MM3 (4.50-5.90); RED CELL DISTRIBUTION WIDTH 16.6 % (11.6-17.2)
[2017-10-08 13:30] LABS: ALBUMIN 3.8 GM/DL (3.4-5.0); BICARBONATE 32.8 MEQ/L (21.0-32.0); CALCIUM 8.9 MG/DL (8.5-10.1); CREATININE 1.84 MG/DL (0.60-1.30)
[2017-10-08 13:31] LABS: PHOSPHORUS 2.6 MG/DL (2.5-4.9)
== END ==
LOC: PLAB 09:17
PROVIDERS: ATTEND Internal Medicine Nephrology
DX: E78.5 Hyperlipidemia, unspecified (principal); I12.9 Hypertensive chronic kidney disease with stage 1 through stage 4 chronic kidney disease, or unspecified chronic kidney disease; N18.3 Chronic kidney disease, stage 3 (moderate); E11.22 Type 2 diabetes mellitus with diabetic chronic kidney disease
CPT/HCPCS: 36415; 80069; 81001; 85025

== ENCOUNTER 2017-10-20 04:40 | Inpatient (IN) | payer MEDICARE, BC ==
[~2017-10-20] VITALS: Ht 182.9 cm; Wt 91.5 kg
[2017-10-20] VITALS (21 sets, daily range): BP systolic 85–114; BP diastolic 52–66; PULSE 73–120; RESP 2–32; TEMP 97.5–98.5; O2SAT 72–100
--- NOTE | 2017-10-20 04:56 | PD ---
HPI Chief Complaint: Respiratory Distress Time Seen by Provider: 04:54 Travel History International Travel<30 days: No Contact w/Intl Traveler<30days: No Traveled to known affect area: No History of Present Illness HPI The patient is an 82 year old male who presents to the [facility] emergency department with a history of shortness of breath that became worse yesterday afternoon and then recurred this evening. The patient reports that the shortness of breath gets worse when he lies flat. He denies having a productive cough. He reports that he has an occasional cough that has been no worse than usual. He denies having any known fevers. The patient reports that he does have a history of COPD and congestive heart failure. He is normally on 2 L nasal cannula O2 continuously at home. The patient's primary care physician is Dr. Velez. His glass engraver is Dr. Frey. The only recent change the patient's medication is that he was taken off Mobic by his kidney specialist. The patient reports that he was instead started on Tylenol for her arthritic pain yesterday. The patient has lower extremity edema, however he reports that this is no worse than usual. On review of systems otherwise, the patient denies having any neck pain, chest pain, abdominal pain, vomiting, diarrhea, urinary symptoms, or neurologic symptoms. [facility] Past Medical History Narrative Medical The patient's past medical history is significant for peripheral vascular disease, peripheral arterial disease, congestive heart failure, chronic renal insufficiency, hyperlipidemia, hypertension, COPD history of atrial fibrillation , history of prostate hypertrophy, history of asbestosis, history of bladder cancer, diabetes mellitus. Hx Anticoagulant Therapy: Yes (ELIQUIS) Asthma: Yes Atrial Fibrillation: Yes Anxiety: No Depression: No Cancer: Yes (BLADDER) Cardiovascular Problems: Yes (CHF) High Cholesterol: Yes Congestive Heart Failure: Yes COPD: Yes Cerebrovascular Accident: Yes Coronary Artery Disease: Yes (PVD/PAD) Diabetes: Yes Patient Takes Glucophage: No Diminished Hearing: No Endocrine: Yes Gastrointestinal Disorders: Yes (GERD) Genitourinary: Yes (BALDDER CANCER/ BPH) Hepatitis: No Hiatal Hernia: Yes (ESOPAGEAL STRICTURE) Hypertension: Yes Immune Disorder: No Musculoskeletal: Yes (ARTHRITIS, NECK/ BACK SX) Neurologic: Yes (NEUROPATHY HANDS/ FEET) Psychiatric: No Reproductive: No Respiratory: Yes (ASBESTOS/COPD ON O2 AT ALL TIME AT 2 L VIA NC) Thyroid Disease: Yes (HYPOTHYROID) Tetanus Vaccination: Unknown Influenza Vaccination: Yes Past Surgical History Narrative Surgical The patient's past surgical history is significant for cervical spine surgery, orchiectomy of one testicle,TURBT, back surgery, tonsillectomy. Abdominal Surgery: Yes ( UMBILICAL HERNIORRHAPHY) AICD: No Body Medical Devices: CERVICAL HARDWARE Eye Surgery: Yes (LT EYE CATARACT EXTRACT.) Genitourinary Surgery: Yes (TURBT, EXC. UNILAT. TESTICLE) Joint Replacement: No Pacemaker: No Tonsillectomy: Yes Other Surgery: Yes (BACK SURGERY 08/03/12) Social History Alcohol Use: Yes (1 beer per week) Tobacco Use: No Substance Use: No Allergies-Medications (Allergen,Severity, Reaction): Coded Allergies: cetirizine (Unverified Allergy, Intermediate, DROWSY, 10/20/17) cimetidine (Unverified Allergy, Intermediate, DIARRHEA, 10/20/17) clarithromycin (Unverified Allergy, Intermediate, DIARRHEA, 10/20/17) hydroxyzine (Unverified Allergy, Intermediate, DIARRHEA, 10/20/17) levofloxacin (Unverified Allergy, Intermediate, HIVES, 10/20/17) Reported Meds & Prescriptions Reported Meds & Active Scripts Active Cardizem CD 24 HR (Diltiazem CD 24 HR) 120 Mg Caper 120 Mg PO DAILY Eliquis (Apixaban) 2.5 Mg Tab 2.5 Mg PO BID Reported Vitamin B Complex (B-Complex Vitamins) 1 Tab [Potassium Cl Packet] 20 DAILY Meloxicam 7.5 Mg Tab 7.5 Mg PO DAILY Tylenol Arthritis (Acetaminophen) 650 Mg Tablet.er [Iron] 35 Mg DAILY Eszopiclone 3 Mg Tab 3 Mg PO DAILY PRN Metolazone 2.5 Mg Tab 2.5 Mg PO DAILY Prednisone 10 Mg Tab 10 Mg PO DAILY Advair Diskus Inh (Fluticasone-Salmeterol Inh) 100-50 Mcg/Blist Aer 1 Puff INH DAILY Rinse mouth after use. Spiriva Handihaler (Tiotropium Inh) 18 Mcg Cap 18 Mcg INH DAILY 1 capsule = 18 mcg Proair Hfa 8.5 GM Inh (Albuterol Sulfate) 90 Mcg/Act Aer 2 Puff INH Q4-6H PRN 108 mcg/actuation Cialis (Tadalafil) 5 Mg Tab 5 Mg PO DAILY Do not exceed 1 dose/day. Tamsulosin (Tamsulosin HCl) 0.4 Mg Cap 0.4 Mg PO HS Sertraline (Sertraline HCl) 50 Mg Tab 50 Mg PO DAILY Bumetanide 1 Mg Tab 1 Mg PO HS Tradjenta (Linagliptin) 5 Mg Tab 5 Mg PO DAILY Finasteride 5 Mg Tab 5 Mg PO DAILY Do not crush. Rabeprazole (Rabeprazole Sodium) 20 Mg Tab 20 Mg PO DAILY Bystolic (Nebivolol) 5 Mg Tab 5 Mg PO DAILY Synthroid (Levothyroxine Sodium) 150 Mcg Tab 150 Mcg PO DAILY Review of Systems Except as stated in HPI: all other systems reviewed are Neg General / Constitutional: No: Fever Eyes: No: Visual changes HENT: No: Headaches, Congestion Cardiovascular: Positive: Dyspnea on exertion, Edema, No: Chest Pain or Discomfort Respiratory: Positive: Cough, Shortness of Breath, Wheezing Gastrointestinal: No: Nausea, Vomiting, Diarrhea, Abdominal Pain Genitourinary: No: Dysuria Musculoskeletal: No: Pain Skin: No Rash Neurologic: No: Weakness, Focal Abnormalities, Change in Mentation, Slurred Speech, Sensory Disturbance Psychiatric: No: Depression Endocrine: No: Polydipsia Hematologic/Lymphatic: No: Easy Bruising Physical Exam Narrative General: The patient is a well-developed well-nourished male uncomfortable appearing on examination related to shortness of breath with conversational dyspnea. The patient is noted to have paroxysmal abdominal breathing. The patient is noted to have O2 saturation in the 70s on room air. Head and Neck exam: Head is normocephalic atraumatic. Eyes: EOMI, pupils are equal round and reactive to light. Nose: Midline septum with pink mucous membranes Mouth: Dentition unremarkable. Moist mucus membranes. Posterior oropharynx is not erythematous. No tonsillar hypertrophy. Uvula midline. Airway patent. Neck: No palpable lymphadenopathy. No nuchal rigidity. No thyromegaly. Cardiovascular: Sinus tachycardia in the 1 teens without murmurs, gallops, or rubs. No pulse deficit to the extremities on simultaneous auscultation and palpation of his radial artery. Lungs: Crackles audible in bilateral lung bases with diminished breath sounds in the bases, no wheezes, or rhonchi. The patient has paroxysmal abdominal breathing noted. No tripoding. No accessory muscle use. Abdomen: Soft, without tenderness to palpation in all 4 quadrants of the abdomen. No guarding, rebound, or rigidity. Normal bowel sounds are audible. No tenderness on palpation of McBurney's point. The patient has a reducible ventral abdominal hernia noted. Extremities: No clubbing or cyanosis. The patient has 1+ pitting edema bilateral lower extremities. 2+ pulses in all 4 extremities. No calf tenderness on palpation. Back: No costovertebral angle tenderness to palpation. Neurologic Exam: Grossly nonfocal. Skin Exam: No rash noted. Intact skin that is warm and dry. Data Data Last Documented VS Vital Signs Date Time Temp Pulse Resp B/P (MAP) Pulse Ox O2 Delivery O2 Flow Rate FiO2 10/20/17 05:53 98.5 10/20/17 05:30 107 24 94 BiPAP 60 10/20/17 04:47 7.00 Orders Orders Complete Blood Count With Diff (10/20/17 04:54) Comprehensive Metabolic Panel (10/20/17 04:54) B-Type Natriuretic Peptide (10/20/17 04:54) Act Partial Throm Time (Ptt) (10/20/17 04:54) Prothrombin Time / Inr (Pt) (10/20/17 04:54) Magnesium (Mg) (10/20/17 04:54) Ckmb (Isoenzyme) Profile (10/20/17 04:54) Troponin I (10/20/17 04:54) Arterial Blood Gas (Abg) (10/20/17 04:54) Urinalysis - C+S If Indicated (10/20/17 04:54) Iv Access Insert/Monitor (10/20/17 04:54) Electrocardiogram (10/20/17 04:54) Ecg Monitoring (10/20/17 04:54) Oximetry (10/20/17 04:54) Oxygen Administration (10/20/17 04:54) Chest, Single Ap (10/20/17 04:54) Urinary Catheter Insert/Apply (10/20/17 04:54) Sodium Chloride 0.9% Flush (Ns Flush) (10/20/17 05:00) Methylprednisolone So Succ Inj (Solumedr (10/20/17 05:00) Albuterol-Ipratropium Neb (Duoneb Neb) (10/20/17 05:00) Furosemide Inj (Lasix Inj) (10/20/17 05:00) Resp Bipap / Cpap Non Invas Vt (10/20/17 04:54) Blood Culture (10/20/17 05:39) Lactic Acid Sepsis Protocol (10/20/17 05:39) Cefepime Inj (Maxipime Inj) (10/20/17 05:39) Azithromycin Inj (Zithromax Inj) (10/20/17 05:45) Admit Order (Ed Use Only) (10/20/17 06:28) Labs Laboratory Tests Test 10/20/17 04:45 10/20/17 04:59 10/20/17 05:40 White Blood Count 17.9 TH/MM3 Red Blood Count 6.72 MIL/MM3 Hemoglobin 18.9 GM/DL Hematocrit 55.6 % Mean Corpuscular Volume 82.8 FL Mean Corpuscular Hemoglobin 28.1 PG Mean Corpuscular Hemoglobin Concent 33.9 % Red Cell Distribution Width 15.9 % Platelet Count 400 TH/MM3 Mean Platelet Volume 9.3 FL Neutrophils (%) (Auto) 88.9 % Lymphocytes (%) (Auto) 4.5 % Monocytes (%) (Auto) 5.7 % Eosinophils (%) (Auto) 0.3 % Basophils (%) (Auto) 0.6 % Neutrophils # (Auto) 15.9 TH/MM3 Lymphocytes # (Auto) 0.8 TH/MM3 Monocytes # (Auto) 1.0 TH/MM3 Eosinophils # (Auto) 0.1 TH/MM3 Basophils # (Auto) 0.1 TH/MM3 CBC Comment DIFF FINAL Differential Comment Prothrombin Time 11.7 SEC Prothromb Time International Ratio 1.2 RATIO Activated Partial Thromboplast Time 29.1 SEC Blood Urea Nitrogen 60 MG/DL Creatinine 1.91 MG/DL Random Glucose 197 MG/DL Total Protein 7.8 GM/DL Albumin 3.7 GM/DL Calcium Level 8.6 MG/DL Magnesium Level 1.6 MG/DL Alkaline Phosphatase 81 U/L Aspartate Amino Transf (AST/SGOT) 34 U/L Alanine Aminotransferase (ALT/SGPT) 23 U/L Total Bilirubin 1.5 MG/DL Sodium Level 136 MEQ/L Potassium Level 3.4 MEQ/L Chloride Level 98 MEQ/L Carbon Dioxide Level 25.5 MEQ/L Anion Gap 13 MEQ/L Estimat Glomerular Filtration Rate 34 ML/MIN Total Creatine Kinase 80 U/L Troponin I 0.10 NG/ML B-Type Natriuretic Peptide 998 PG/ML Blood Gas Puncture Site LT RADIAL Blood Gas Patient Temperature 98.6 Blood Gas HCO3 27 mmol/L Blood Gas Base Excess 3.3 mmol/L Blood Gas Oxygen Saturation 93 % Arterial Blood pH 7.48 Arterial Blood Partial Pressure CO2 37 mmHg Arterial Blood Partial Pressure O2 73 mmHG Arterial Blood Oxygen Content 24.4 Vol % Arterial Blood Carboxyhemoglobin 1.6 % Arterial Blood Methemoglobin 0.6 % Blood Gas Hemoglobin 18.7 G/DL Oxygen Delivery Device BIPAP Blood Gas Ventilator Setting IPAP10/EPAP5 Blood Gas Inspired Oxygen 60 % Lactic Acid Level 1.2 mmol/L [facility] Medical Decision Making Medical Screen Exam Complete: Yes Emergency Medical Condition: Yes Medical Record Reviewed: Yes Interpretation(s) Last Impressions Chest X-Ray 10/20/17 0454 Signed Impressions: Service Date/Time: Friday, October 20, 2017 05:14 - CONCLUSION: Interval development of bilateral lower lung non-consolidative infiltrates. Stable cardiomegaly. Sumanth Gerardo MD Differential Diagnosis Congestive heart failure exacerbation, versus pneumonia, versus CHF exacerbation , versus acute coronary syndrome Narrative Course During the course of the patients emergency department visit, the patients history, examination, and differential diagnosis were reviewed with the patient. The patient was placed on a cardiac care nurse with oximetry and frequent blood pressure monitoring. The patient had IV access obtained and blood work sent for analysis. The patient had an EKG done on arrival that shows a rate of 114, sinus tachycardia with occasional ventricular premature complexes with occasional supraventricular premature complexes, QRS duration is 104 ms, QTC [address] segment elevation is noted. ST segment downsloping is noted in lead 2, 3, aVF. The patient was initially placed on a nonrebreather mask to increase his O2. The patient was then converted to BiPAP. The patient' s temperature is 98.5. The patient's electronic medical record was reviewed. The patient reports that he does have a history of congestive heart failure, however from reviewing his last echo done at this facility in October 2016 his ejection fraction was 60-65%, however he did have a severe tricuspid regurgitation. The patient was initially provided Lasix 60 mg IV, DuoNeb 2, Solu-Medrol 125 mg IV. The patients laboratory studies were reviewed and remarkable for a white count of 17.9, hemoglobin 18.9, platelets 400 with 88.9 neutrophils, CMP is remarkable for potassium of 3.4, BUN 60, creatinine 1.91, glucose 197, total bilirubin 1.5, CPK 80, troponin I 0.10, BNP 998, PT 11.7, PTT 29.1, urinalysis shows trace occult blood, small leukocyte esterase, 5 rbc's, rare bacteria. As the patient does have an elevated white blood cell count with possible consolidation on his chest x-ray the patient was given azithromycin 500 IV, cefepime 2 g IV. Radiology studies were reviewed and remarkable for bilateral lower lobe consolidative infiltrates suspicious for pulmonary edema. The patients results were discussed with the patient, including the plan of care. I explained that further testing and/ or monitoring is indicated based on the patients history, examination, and/ or laboratory findings. Therefore, I recommended admission for additional evaluation. The patient expressed understanding and was agreeable with this plan. The patient was admitted to the hospital in guarded condition and sent to a bed under the care of the [facility] service. Physician Communication Physician Communication The patient's case including history, pertinent physical examination findings, and laboratory studies were discussed with Dr. Bowers. It was agreed that the patient would be admitted to the [facility] service. Diagnosis Primary Impression: Acute on chronic respiratory failure with hypoxemia Additional Impression: Acute exacerbation of congestive heart failure Qualified Codes: I50.9 - Heart failure, unspecified Admitting Information Admitting Physician Requests: Admit Sarah Schumacher MD Oct 20, 2017 04:56
[2017-10-20] MEDS ORDERED: TRAD5TAB PO (04:58)
[2017-10-20] MEDS ORDERED: Iron (04:58)
[2017-10-20] MEDS ORDERED: MELO7.5T27 PO (04:58)
[2017-10-20] MEDS ORDERED: PRED10 PO (04:58)
[2017-10-20] MEDS ORDERED: METO2.5T PO (04:58)
[2017-10-20] MEDS ORDERED: VITATAB11 (04:58)
[2017-10-20] MEDS ORDERED: POTASSIUM CL (04:58)
[2017-10-20] MEDS ORDERED: ESZO1TAB4 PO (04:58)
[2017-10-20] MEDS ORDERED: ACET650T67 (04:58)
[2017-10-20] MEDS ORDERED: FUROSEMIDE 100 MG/10 ML VIAL IVP ONE (05:00)
[2017-10-20] MEDS ORDERED: methylPREDNISolone SOD SUCC 125 MG/2 ML VIAL IV PUSH ONE (05:00)
[2017-10-20] MEDS ORDERED: SODIUM CHLORIDE 0.9% FLUSH 10 ML FLUSH IVF PRN (05:00)
[2017-10-20] MEDS: RESP: ALBUTEROL 2.5 MG/IPRATROPIUM 0.5 MG NEB (SCH) INH (05:11)
[2017-10-20 05:19] LABS: AUTOMATED NEUTROPHIL # 15.9 TH/MM3 (1.8-7.7); BASOPHIL # 0.1 TH/MM3 (0-0.2); BASOPHIL % 0.6 % (0.0-2.0); EOSINOPHIL # 0.1 TH/MM3 (0-0.4); EOSINOPHIL % 0.3 % (0.0-4.0); HEMATOCRIT 55.6 % (39.0-51.0); HEMOGLOBIN 18.9 GM/DL (13.0-17.0); LYMPH % 4.5 % (9.0-44.0); LYMPHOCYTE # 0.8 TH/MM3 (1.0-4.8); MEAN CELL VOLUME 82.8 FL (80.0-100.0); MEAN CORPUSCULAR HEMOGLOBIN 28.1 PG (27.0-34.0); MEAN CORPUSCULAR HGB CONC 33.9 % (32.0-36.0); MEAN PLATELET VOLUME 9.3 FL (7.0-11.0); MONO % 5.7 % (0.0-8.0); NEUT % 88.9 % (16.0-70.0); PLATELET COUNT 400 TH/MM3 (150-450); RED BLOOD COUNT 6.72 MIL/MM3 (4.50-5.90); RED CELL DISTRIBUTION WIDTH 15.9 % (11.6-17.2); WHITE BLOOD COUNT 17.9 TH/MM3 (4.0-11.0)
[2017-10-20 05:27] LABS: INTERNATIONAL NORMALIZED RATIO 1.2 RATIO; PROTHROMBIN TIME - PATIENT 11.7 SEC (9.8-11.6)
--- NOTE | 2017-10-20 05:28 | RADRPT ---
EXAM DATE/TIME: 10/20/2017 05:14 [facility] COMPARISON: CHEST SINGLE AP, November 06, 2016, 13:25. INDICATIONS : Shortness of breath. MEDICAL HISTORY : Chronic obstructive pulmonary disease. SURGICAL HISTORY : None. ENCOUNTER: Subsequent ACUITY: 4 - 6 days PAIN SCORE: Non-responsive. LOCATION: Bilateral chest FINDINGS: Interval development of patchy consolidative infiltrates in the right infrahilar and left lower lung. Both hemidiaphragms remain well delineated. Stable cardiomegaly and tortuosity descending thoracic aorta. Osseous structures are intact. Surgical hardware in the cervical region. CONCLUSION: Interval development of bilateral lower lung non-consolidative infiltrates. Stable cardiomegaly. Sumanth Gerardo MD on October 20, 2017 at 5:26 Board Certified Radiologist. This report was verified electronically.
[2017-10-20] MEDS ORDERED: CEFEPIME INJ 2,000 MG in SODIUM CHLORIDE 0.9% INJ 100 ML IV STA (05:39)
[2017-10-20 05:40] LABS: ALBUMIN 3.7 GM/DL (3.4-5.0); ALKALINE PHOSPHATASE 81 U/L (45-117); ALT (GPT) 23 U/L (12-78); AST (GOT) 34 U/L (15-37); BICARBONATE 25.5 MEQ/L (21.0-32.0); BLOOD UREA NITROGEN 60 MG/DL (7-18); CALCIUM 8.6 MG/DL (8.5-10.1); CHLORIDE 98 MEQ/L (98-107); CREATININE 1.91 MG/DL (0.60-1.30); GLOMERULAR FILTRATION RATE 34 ML/MIN (>89); GLUCOSE,RANDOM 197 MG/DL (74-106); MAGNESIUM 1.6 MG/DL (1.5-2.5); SODIUM (NA) 136 MEQ/L (136-145); TOTAL BILIRUBIN ADULT 1.5 MG/DL (0.2-1.0); TOTAL PROTEIN 7.8 GM/DL (6.4-8.2)
[2017-10-20] MEDS ORDERED: AZITHROMYCIN INJ 500 MG in SODIUM CHLOR 0.9% 250 ML INJ 250 ML IV ONE (05:45)
[2017-10-20] MEDS ORDERED: BISACODYL 10 MG SUPP RECTAL PRN (06:30)
[2017-10-20] MEDS ORDERED: MAGNESIUM HYDROXIDE SUSP 30 ML CUP PO PRN (06:30)
[2017-10-20] MEDS ORDERED: NALOXONE HCL 0.4 MG/ML AMP IV PUSH PRN (06:30)
[2017-10-20] MEDS ORDERED: ACETAMINOPHEN 325 MG TAB PO PRN (06:30)
[2017-10-20] MEDS ORDERED: SENNOSIDES 8.6 MG TAB PO PRN (06:30)
[2017-10-20] MEDS ORDERED: LACTULOSE SYRUP 20 GM/30 ML CUP PO PRN (06:30)
[2017-10-20] MEDS ORDERED: POTASSIUM CHLORIDE 20 MEQ CONTROLLED RELEASE TAB PO ONE (06:30)
[2017-10-20] MEDS ORDERED: SODIUM CHLORIDE 0.9% FLUSH 10 ML FLUSH IV FLUSH PRN (06:30)
[2017-10-20] MEDS ORDERED: ONDANSETRON HCL 4 MG/2 ML VIAL IVP PRN (06:30)
[2017-10-20] MEDS ORDERED: GLUCAGON 1 MG/ML VIAL OTHER PRN (06:45)
[2017-10-20] MEDS ORDERED: DEXTROSE 50% IN WATER 50 ML VIAL(D50) IV PUSH PRN (06:45)
[2017-10-20] MEDS ORDERED: LACTATED RINGER'S 1000 ML IV PRN (07:00)
[2017-10-20] MEDS ORDERED: POVIDONE IODINE 5% (ANTISEPSIS KIT) 4 APPLICATIONS EACH NARE PRN (07:00)
[2017-10-20] MEDS ORDERED: CHLORHEXIDINE GLUCONATE 2 % 1 PACK (2 CLOTHS) TOPICAL PRN (07:00)
[2017-10-20] MEDS ORDERED: SODIUM CHLORID 0.9% 500 ML IV PRN (07:00)
[2017-10-20] MEDS ORDERED: METOPROLOL TARTRATE 25 MG TAB PO PRN (07:00)
[2017-10-20 08:57] LABS: BACTERIA, URINE RARE /hpf; BILIRUBIN, URINE NEG (NEG); BLOOD, URINE TRACE (NEG); GLUCOSE,URINE NEG (NEG); HYALINE CAST, URINE 3 /lpf (RARE); KETONE, URINE NEG (NEG); MUCUS URINE FEW /lpf (OCC); NITRITE,URINE NEG (NEG); URINE COLOR YELLOW (YELLW/STRAW); URINE LEUKOCYTE ESTERASE SMALL (NEG)
[2017-10-20] MEDS: DOCUSATE SODIUM 50 MG/SENNA 8.6 MG TAB PO SCH ×3 (09:00→21:00)
[2017-10-20] MEDS ORDERED: DILTIAZEM-CD 120 MG CAP ER PO SCH (09:00)
[2017-10-20] MEDS: BUDESONIDE-FORMOTEROL 80/4.5 MCG INHALER INH SCH ×3 (09:00→21:38)
[2017-10-20] MEDS: HEPARIN SODIUM - SQ 10,000 UNITS/ML VIAL SQ SCH ×2 (09:02→18:16)
[2017-10-20] MEDS: FUROSEMIDE 20 MG/2 ML VIAL IV PUSH SCH ×2 (09:03→17:01)
[2017-10-20] MEDS: PANTOPRAZOLE SOD 40 MG DELAYED RELEASE TAB PO SCH (09:03)
[2017-10-20] MEDS: INSULIN ASPART SUPPLEMENTAL SCALE SQ SCH ×4 (09:07→21:36)
[2017-10-20] MEDS: SODIUM CHLORIDE 0.9% FLUSH 10 ML FLUSH IV FLUSH SCH ×2 (09:08→21:38)
[2017-10-20] MEDS: FINASTERIDE 5 MG TAB PO SCH (09:24)
[2017-10-20] MEDS: NEBIVOLOL 5 MG TAB PO SCH (09:25)
[2017-10-20] MEDS: APIXABAN 2.5 MG TABLET PO SCH ×2 (09:25→21:37)
[2017-10-20] MEDS: METOLAZONE 2.5 MG TAB PO SCH (09:26)
[2017-10-20] MEDS: SERTRALINE HCL 50 MG TAB PO SCH (09:26)
[2017-10-20] MEDS: LEVOTHYROXINE SODIUM 150 MCG TAB PO SCH (09:27)
[2017-10-20] MEDS: TIOTROPIUM BROMIDE 18 MCG INH INH SCH (09:27)
[2017-10-20 12:21] LABS: TROPONIN I 0.11 NG/ML (0.02-0.05)
--- NOTE | 2017-10-20 12:57 | HHI.HP ---
[facility] Service [facility] Primary Care Physician Laith Stallworth MD Admission Diagnosis CHF exacerbation, Hypoxemia on usual home o2 Diagnoses: Chief Complaint: Shortness of breathing Travel History International Travel<30 Days: No Contact w/Intl Traveler <30 Da: No Traveled to Known Affected Are: No History of Present Illness This is an 82-year-old male history of atrial fibrillation, COPD, history of asbestos exposure, type 2 diabetes, chronic respiratory failure on home oxygen 2 L and hypertension who presented with shortness of breathing. Patient stated that shortness of breathing started yesterday worsens so went to emergency department last night. He denies any URI symptoms or cold-like symptoms. Denies any cough. Patient stated that he was doing well prior from this. Deny any fevers or chills. Stopped tobacco use 22 years ago. Deny any increased swelling in the lower extremity. Patient was given a dose of Lasix and start antibiotics in the ED. He was also put on BiPAP. Patient stated that his breathing has improved drastically. All other review system reviewed and negative. Past Family Social History Past Medical History COPD asbestos exposure peripheral vascular disease GERD bladder cancer hyperlipidemia diabetes mellitus hypertension hypothyroidism peripheral neuropathy Past Surgical History Umbilical herniorrhaphy, cervical hardware placement, left eye cataract extract , TURBT excision unilateral testicle, back surgery 08/03/2012 Reported Medications Reported Meds & Active Scripts Active Cardizem CD 24 HR (Diltiazem CD 24 HR) 120 Mg Caper 120 Mg PO DAILY Eliquis (Apixaban) 2.5 Mg Tab 2.5 Mg PO BID Reported Vitamin B Complex (B-Complex Vitamins) 1 Tab [Potassium Cl Packet] 20 DAILY Meloxicam 7.5 Mg Tab 7.5 Mg PO DAILY Tylenol Arthritis (Acetaminophen) 650 Mg Tablet.er [Iron] 35 Mg DAILY Eszopiclone 3 Mg Tab 3 Mg PO DAILY PRN Metolazone 2.5 Mg Tab 2.5 Mg PO DAILY Prednisone 10 Mg Tab 10 Mg PO DAILY Advair Diskus Inh (Fluticasone-Salmeterol Inh) 100-50 Mcg/Blist Aer 1 Puff INH DAILY Rinse mouth after use. Spiriva Handihaler (Tiotropium Inh) 18 Mcg Cap 18 Mcg INH DAILY 1 capsule = 18 mcg Proair Hfa 8.5 GM Inh (Albuterol Sulfate) 90 Mcg/Act Aer 2 Puff INH Q4-6H PRN 108 mcg/actuation Cialis (Tadalafil) 5 Mg Tab 5 Mg PO DAILY Do not exceed 1 dose/day. Tamsulosin (Tamsulosin HCl) 0.4 Mg Cap 0.4 Mg PO HS Sertraline (Sertraline HCl) 50 Mg Tab 50 Mg PO DAILY Bumetanide 1 Mg Tab 1 Mg PO HS Tradjenta (Linagliptin) 5 Mg Tab 5 Mg PO DAILY Finasteride 5 Mg Tab 5 Mg PO DAILY Do not crush. Rabeprazole (Rabeprazole Sodium) 20 Mg Tab 20 Mg PO DAILY Bystolic (Nebivolol) 5 Mg Tab 5 Mg PO DAILY Synthroid (Levothyroxine Sodium) 150 Mcg Tab 150 Mcg PO DAILY Allergies: Coded Allergies: cetirizine (Unverified Allergy, Intermediate, DROWSY, 10/20/17) cimetidine (Unverified Allergy, Intermediate, DIARRHEA, 10/20/17) clarithromycin (Unverified Allergy, Intermediate, DIARRHEA, 10/20/17) hydroxyzine (Unverified Allergy, Intermediate, DIARRHEA, 10/20/17) levofloxacin (Unverified Allergy, Intermediate, HIVES, 10/20/17) Active Ordered Medications Current Medications Sodium Chloride (NS Flush) 2 ml UNSCH PRN IVF FLUSH AFTER USING IV ACCESS; Start 10/20/17 at 05:00; Stop 10/20/17 at 08:37; Status DC Methylprednisolone Sodium Succinate (SoluMEDROL INJ) 125 mg ONCE ONCE IV PUSH Last administered on 10/20/17at 05:05; Start 10/20/17 at 05:00; Stop 10/20/17 at 05:01; Status DC Albuterol/ Ipratropium (Duoneb Neb) 1 ampule Q15M INH Last administered on 10/20at 05:11; Start 10/20/17 at 05:00; Stop 10/20/17 at 05:16; Status DC Furosemide (Lasix Inj) 60 mg ONCE ONCE IVP Last administered on 10/20/17at 05: 05; Start 10/20/17 at 05:00; Stop 10/20/17 at 05:01; Status DC Cefepime HCl 2000 mg/Sodium Chloride 100 ml @ 200 mls/hr ONCE STAT IV Last administered on 10/20/17at 06:34; Start 10/20/17 at 05:39; Stop 10/20/17 at 06:08 ; Status DC Azithromycin 500 mg/Sodium Chloride 250 ml @ 250 mls/hr ONCE ONCE IV Last administered on 10/20/17at 05:54; Start 10/20/17 at 05:45; Stop 10/20/17 at 06:44 ; Status DC Azithromycin 500 mg/Sodium Chloride 250 ml @ 250 mls/hr Q24H IV ; Start at 09:00 Ceftriaxone Sodium 1000 mg/ Sodium Chloride 100 ml @ 200 mls/hr Q24H IV ; Start 10/21/17 at 10:00 Furosemide (Lasix Inj) 20 mg BID@09,18 IV PUSH Last administered on 10/20/17at 09:03; Start 10/20/17 at 09:00 Albuterol/ Ipratropium (Duoneb Neb) 1 ampule Q4HR NEB PRN NEB SOB/WHeezing; Start 10/20/17 at 06:30 Sodium Chloride (NS Flush) 2 ml UNSCH PRN IV FLUSH FLUSH AFTER USING IV ACCESS ; Start 10/20/17 at 06:30 Sodium Chloride (NS Flush) 2 ml BID IV FLUSH Last administered on 10/20/17at 09: 08; Start 10/20/17 at 09:00 Acetaminophen (Tylenol) 650 mg Q4H PRN PO TEMP > 100.4; Start 10/20/17 at 06:30 Ondansetron HCl (Zofran Inj) 4 mg Q6H PRN IVP NAUSEA OR VOMITING; Start at 06:30 Heparin Sodium (Porcine) (Heparin Inj) 5,000 units Q8H SQ Last administered on 10/20/17at 09:02; Start 10/20/17 at 09:00 Naloxone HCl (Narcan Inj) 0.4 mg UNSCH PRN IV PUSH SEE LABEL COMMENTS; Start at 06:30 Senna/Docusate Sodium (Fransisca-Colace) 1 tab BID PO ; Start 10/20/17 at 09:00 Magnesium Hydroxide (Milk Of Magnesia Liq) 30 ml Q12H PRN PO Mild constipation ; Start 10/20/17 at 06:30 Sennosides (Senokot) 17.2 mg Q12H PRN PO Moderate constipation; Start 10/20/17 at 06:30 Bisacodyl (Dulcolax Supp) 10 mg DAILY PRN RECTAL SEVERE CONSITIPATION; Start at 06:30 Lactulose (Lactulose Liq) 30 ml DAILY PRN PO SEVERE CONSITIPATION; Start at 06:30 Potassium Chloride (KCl) 40 meq ONCE ONCE PO Last administered on 10/20/17at 09 :04; Start 10/20/17 at 06:30; Stop 10/20/17 at 08:48; Status DC Apixaban (Eliquis) 2.5 mg BID PO Last administered on 10/20/17at 09:25; Start at 09:00 Bumetanide (Bumetanide) 1 mg HS PO ; Start 10/20/17 at 21:00 Diltiazem HCl (Cardizem Cd) 120 mg DAILY PO Last administered on 10/20/17at 09: 26; Start 10/20/17 at 09:00 Finasteride (Proscar) 5 mg DAILY PO Last administered on 10/20/17at 09:24; Start 10/20/17 at 09:00 Levothyroxine Sodium (Synthroid) 150 mcg DAILY@0600 PO Last administered on at 09:27; Start 10/20/17 at 08:43 Metolazone (Zaroxolyn) 2.5 mg DAILY PO Last administered on 10/20/17at 09:26; Start 10/20/17 at 09:00 Nebivolol (Bystolic) 5 mg DAILY PO Last administered on 10/20/17at 09:25; Start 10/20/17 at 09:00 Pantoprazole Sodium (Protonix) 40 mg DAILY PO Last administered on 10/20/17at 09 :03; Start 10/20/17 at 09:00 Sertraline HCl (Zoloft) 50 mg DAILY PO Last administered on 10/20/17at 09:26; Start 10/20/17 at 09:00 Tamsulosin HCl (Flomax) 0.4 mg HS PO ; Start 10/20/17 at 21:00 Tiotropium [place] (Spiriva Inh) 18 mcg DAILY INH Last administered on at 09:27; Start 10/20/17 at 09:00 Budesonide/ Formoterol Fumarate (Symbicort 80-4.5 Mcg Inh) 2 puff BID INH ; Start 10/20/17 at 09:00 Dextrose (D50w (Vial) Inj) 50 ml UNSCH PRN IV PUSH HYPOGLYCEMIA-SEE COMMENTS; Start 10/20/17 at 06:45 Glucagon (Glucagon Inj) 1 mg UNSCH PRN OTHER HYPOGLYCEMIA-SEE COMMENTS; Start 10/20/17 at 06:45 Insulin Aspart (NovoLOG SUPPLEMENTAL SCALE) 1 ACHS SLIDING SCALE SQ Last administered on 10/20/17at 12:55; Start 10/20/17 at 08:00 Lactated Ringer's 1,000 ml @ 30 mls/hr Q24H PRN IV SEE LABEL COMMENTS; Start at 07:00; Stop 10/23/17 at 06:59 Sodium Chloride 500 ml @ 30 mls/hr [id number] PRN IV SEE LABEL COMMENTS; Start at 07:00; Stop 10/23/17 at 06:59 Metoprolol Tartrate (Lopressor) 25 mg [employer] PRN PO SEE LABEL COMMENTS; Start 10/20/17 at 07:00; Stop 10/23/17 at 06:59 Povidone Iodine (Betadine 5% Antisepsis Kit) 1 applic [employer] PRN EACH NARE SEE LABEL COMMENTS; Start 10/20/17 at 07:00; Stop 10/23/17 at 06:59 Chlorhexidine Gluconate (Chlorhexidine 2% Cloth) 3 pack [employer] PRN TOPICAL SEE LABEL COMMENTS; Start 10/20/17 at 07:00; Stop 10/23/17 at 06:59 Family History Father had diabetes, hypertension and heart disease Mother had hyperlipidemia Social History Denying tobacco or illicit drug use. Drinks about 1 beer per week. Physical Exam Vital Signs Vital Signs Date Time Temp Pulse Resp B/P (MAP) Pulse Ox O2 Delivery O2 Flow Rate FiO2 10/20/17 12:30 80 21 93/64 (74) 91 BiPAP 10/20/17 12:00 76 17 92/52 (65) 92 BiPAP 10/20/17 11:23 96 45 10/20/17 11:00 84 19 90/61 (71) 92 BiPAP 10/20/17 09:57 89 Nasal Cannula 6.00 10/20/17 09:57 98 32 103/61 (75) 89 Nasal Cannula 6.00 10/20/17 09:06 100 60 10/20/17 07:30 97 28 89/61 (70) 95 BiPAP 10/20/17 06:36 97 18 95/58 (70) 94 BiPAP 10/20/17 05:53 98.5 10/20/17 05:30 107 24 92/56 (68) 94 BiPAP 60 10/20/17 05:16 93 BiPAP 50 10/20/17 05:05 111 26 104/65 (78) 93 BiPAP 50 10/20/17 04:55 93 60 10/20/17 04:51 BiPAP 50 10/20/17 04:51 106 10/20/17 04:47 79 Nasal Cannula 7.00 10/20/17 04:47 90 Non-Rebreather 15.00 10/20/17 04:43 120 30 114/64 (81) 72 Physical Exam GENERAL: This is a well-nourished, well-developed patient, in no apparent distress but is on BiPAP. SKIN: No rashes, ecchymoses or lesions. Cool and dry. HEAD: Atraumatic. Normocephalic. No temporal or scalp tenderness. EYES: Pupils equal round and reactive. Extraocular motions intact. No scleral icterus. No injection or drainage. ENT: Nose without bleeding, purulent drainage or septal hematoma. Throat without erythema, tonsillar hypertrophy or exudate. Uvula midline. Airway patent. NECK: Trachea midline. No JVD or lymphadenopathy. Supple, nontender, no meningeal signs. CARDIOVASCULAR: Regular rate and rhythm without murmurs, gallops, or rubs. RESPIRATORY: Lower basilar crackles but otherwise CTA B/L GASTROINTESTINAL: Abdomen soft, non-tender, nondistended. No hepato-splenomegaly , or palpable masses. No guarding. MUSCULOSKELETAL:+ 1 LE edema. No joint tenderness, effusion, or edema noted. No calf tenderness. Negative Homans sign bilaterally. NEUROLOGICAL: Awake and alert. Cranial nerves II through XII intact. Motor and sensory grossly within normal limits. Five out of 5 muscle strength in all muscle groups. Normal speech. Laboratory Laboratory Tests Test 10/20/17 04:45 10/20/17 04:59 10/20/17 05:40 10/20/17 07:46 White Blood Count 17.9 Red Blood Count 6.72 Hemoglobin 18.9 Hematocrit 55.6 Mean Corpuscular Volume 82.8 Mean Corpuscular Hemoglobin 28.1 Mean Corpuscular Hemoglobin Concent 33.9 Red Cell Distribution Width 15.9 Platelet Count 400 Mean Platelet Volume 9.3 Neutrophils (%) (Auto) 88.9 Lymphocytes (%) (Auto) 4.5 Monocytes (%) (Auto) 5.7 Eosinophils (%) (Auto) 0.3 Basophils (%) (Auto) 0.6 Neutrophils # (Auto) 15.9 Lymphocytes # (Auto) 0.8 Monocytes # (Auto) 1.0 Eosinophils # (Auto) 0.1 Basophils # (Auto) 0.1 CBC Comment DIFF FINAL Differential Comment Prothrombin Time 11.7 Prothromb Time International Ratio 1.2 Activated Partial Thromboplast Time 29.1 Blood Urea Nitrogen 60 Creatinine 1.91 Random Glucose 197 Total Protein 7.8 Albumin 3.7 Calcium Level 8.6 Magnesium Level 1.6 Alkaline Phosphatase 81 Aspartate Amino Transf (AST/SGOT) 34 Alanine Aminotransferase (ALT/SGPT) 23 Total Bilirubin 1.5 Sodium Level 136 Potassium Level 3.4 Chloride Level 98 Carbon Dioxide Level 25.5 Anion Gap 13 Estimat Glomerular Filtration Rate 34 Total Creatine Kinase 80 Troponin I 0.10 B-Type Natriuretic Peptide 998 Blood Gas Puncture Site LT RADIAL Blood Gas Patient Temperature 98.6 Blood Gas HCO3 27 Blood Gas Base Excess 3.3 Blood Gas Oxygen Saturation 93 Arterial Blood pH 7.48 Arterial Blood Partial Pressure CO2 37 Arterial Blood Partial Pressure O2 73 Arterial Blood Oxygen Content 24.4 Arterial Blood Carboxyhemoglobin 1.6 Arterial Blood Methemoglobin 0.6 Blood Gas Hemoglobin 18.7 Oxygen Delivery Device BIPAP Blood Gas Ventilator Setting [id number] Blood Gas Inspired Oxygen 60 Lactic Acid Level 1.2 Urine Color YELLOW Urine Turbidity CLEAR Urine pH 6.0 Urine Specific [place] 1.010 Urine Protein NEG Urine Glucose (UA) NEG Urine Ketones NEG Urine Occult Blood TRACE Urine Nitrite NEG Urine Bilirubin NEG Urine Urobilinogen LESS THAN 2.0 Urine Leukocyte Esterase SMALL Urine RBC 5 Urine WBC 3 Urine Bacteria RARE Urine Hyaline Casts 3 Urine Mucus FEW Microscopic Urinalysis Comment CULT NOT INDICATED Test 10/20/17 11:14 Total Creatine Kinase 35 Troponin I 0.11 Date/Time Source Procedure Growth Status 10/20/17 05:45 Blood Peripheral Aerobic Blood Culture Pending Received 10/20/17 05:45 Blood Peripheral Anaerobic Blood Culture Pending Received Result Diagram: 10/20/17 0445 10/20/17 0445 Imaging Last Impressions Chest X-Ray 10/20/17 0454 Signed Impressions: Service Date/Time: Friday, October 20, 2017 05:14 - CONCLUSION: Interval development of bilateral lower lung non-consolidative infiltrates. Stable cardiomegaly. MD Hardik Zambrano VTE Risk Assessment Caprinlarry VTE Risk Assessment: Mod/High Risk (score >= 2) Caprini Risk Assessment Model Point Value = 1 Point Value = 2 Point Value = 3 Point Value = 5 Age 41-60 Minor surgery BMI > 25 kg/m2 Swollen legs Varicose veins or History of unexplained or recurrent spontaneous Oral contraceptives or hormone replacement Sepsis (< 1 month) Serious lung disease, including pneumonia (< 1 month) Abnormal pulmonary function Acute myocardial infarction Congestive heart failure (< 1 month) History of inflammatory bowel disease Medical patient at bed rest Age 61-74 Arthroscopic surgery Major open surgery (> 45 min) Laparoscopic surgery (> 45 min) Malignancy Confined to bed (> 72 hours) Immobilizing plaster cast Central venous access Age >= 75 History of VTE Family history of VTE Factor V Leiden Prothrombin [id number] Lupus anticoagulant Anticardiolipin antibodies Elevated serum homocysteine Heparin-induced thrombocytopenia Other congenital or acquired thrombophilia Stroke (< 1 month) Elective arthroplasty Hip, pelvis, or leg fracture Acute spinal cord injury (< 1 month) Prophylaxis Regimen Total Risk Factor Score Risk Level Prophylaxis Regimen 0-1 Low Early ambulation 2 Moderate Order ONE of the following: *Sequential Compression Device (SCD) *Heparin 5000 units SQ BID 3-4 Higher Order ONE of the following medications: *Heparin 5000 units SQ TID *Enoxaparin/Lovenox 40 mg SQ daily (WT < 150 kg, CrCl > 30 mL/min) *Enoxaparin/Lovenox 30 mg SQ daily (WT < 150 kg, CrCl > 10-29 mL/min) *Enoxaparin/Lovenox 30 mg SQ BID (WT < 150 kg, CrCl > 30 mL/min) AND/OR *Sequential Compression Device (SCD) 5 or more Highest Order ONE of the following medications: *Heparin 5000 units SQ TID (Preferred with Epidurals) *Enoxaparin/Lovenox 40 mg SQ daily (WT < 150 kg, CrCl > 30 mL/min) *Enoxaparin/Lovenox 30 mg SQ daily (WT < 150 kg, CrCl > 10-29 mL/min) *Enoxaparin/Lovenox 30 mg SQ BID (WT < 150 kg, CrCl > 30 mL/min) AND *Sequential Compression Device (SCD) Assessment and Plan Assessment and Plan This is an 82-year-old male presented with shortness of breathing 1 day Dyspnea -Chest x-ray shows bilateral infiltrate non-consolidative. BNP elevated at 998 with some lower extremity edema. -This may be secondary to CHF exacerbation or COPD exacerbation or a combination CHF/COPD exacerbation. -Patient was given Solu-Medrol, DuoNeb nebs, and Lasix while in the emergency department. Lungs are pretty clear during my exam. -Continue Lasix 20 mg IV twice a day. At home he is on Bumex and metolazone. -Patient was given azithromycin and cefepime in the ED. Will start Rocephin and continue with azithromycin. Schedule DuoNeb's, albuterol when necessary, Solu-Medrol. Adjust accordingly. -Continue BiPAP and wean off as tolerated. CHF exacerbation -See treatment as above. -Continue home medication except for Bumex and metolazone. Since patient will be on Lasix. Strict ins and outs. Adjust accordingly. COPD exacerbation -? Clinically does not sound like he is in exacerbation may be more due to CHF. -Will continue treatment but most likely probably wean off quickly if he continues to improve. Type 2 diabetes/history of atrial fibrillation/chronic anticoagulation/ hypertension/hyperlipidemia/GERD -Continue home medication. -Insulin sliding scale. Chronic kidney disease most likely secondary to hypertension and diabetes -Avoid nephrotoxins. Patient at baseline. -strict ins and outs since he is on Lasix. DVT prophylaxis -On Eliquis. Discussed Condition With patient Physician Certification 2 Midnight Certification Type: Admission for Inpatient Services Order for Inpatient Services The services are ordered in accordance with Medicare regulations or non- Medicare payer requirements, as applicable. In the case of services not specified as inpatient-only, they are appropriately provided as inpatient services in accordance with the 2-midnight benchmark. Estimated LOS (days): 3 3 days is the estimated time the patient will need to remain in the hospital, assuming treatment plan goals are met and no additional complications. Post-Hospital Plan: [place] Nena Lees MD Oct 20, 2017 12:57
[2017-10-20] MEDS: RESP: ALBUTEROL 2.5 MG/IPRATROPIUM 0.5 MG NEB (PRN) NEB ×2 (17:03→20:24)
[2017-10-20 17:21] LABS: TROPONIN I 0.12 NG/ML (0.02-0.05)
--- NOTE | 2017-10-20 17:25 | EKG ---
Date Performed: 10/20/2017 Time Performed: 04:46:24 PTAGE: 82 years EKG: SINUS TACHYCARDIA WITH OCCASIONAL VENTRICULAR PREMATURE COMPLEXES WITH OCCASIONAL SUPRAVENT RICULAR PREMATURE COMPLEXES BORDERLINE RIGHT AXIS DEVIATION INCOMPLETE RIGHT BUNDLE BRANCH BLOCK MINI MAL ST DEPRESSION ABNORMAL RHYTHM ECG PREVIOUS TRACING : 11/07/2016 00.52 DOCTOR: Matilde Peters Interpretating Date/Time 10/20/2017 17:21:48
[2017-10-20] MEDS ORDERED: TAMSULOSIN HCL 0.4 MG CAP PO SCH (21:00)
[2017-10-20] MEDS ORDERED: BUMETANIDE 1 MG TAB PO SCH (21:00)
--- NOTE | 2017-10-20 21:13 | EKG ---
Date Performed: 10/20/2017 Time Performed: 17:22:55 PTAGE: 82 years EKG: Sinus rhythm FOLLOWED BY ATRIAL FIBRILLATION/TACHYCARDIA ST DEVIATION AND MODERATE T-WAVE ABNORMALITY, CONSIDER A NTEROLATERAL ISCHEMIA ABNORMAL ECG PREVIOUS TRACING : 10/20/2017 11.18 Since previous tracing brief run of a fib/a tach present DOCTOR: Shimon Fields Interpretating Date/Time 10/20/2017 21:12:24
--- NOTE | 2017-10-20 22:02 | EKG ---
Date Performed: 10/20/2017 Time Performed: 11:18:06 PTAGE: 82 years EKG: Sinus rhythm WITH OCCASIONAL SUPRAVENTRICULAR PREMATURE COMPLEXES MODERATE INTRAVENTRICULAR CONDUCTION DELAY MINI MAL ST DEPRESSION PROLONGED QT INTERVAL ABNORMAL ECG PREVIOUS TRACING : 10/20/2017 04.46 Since previous tracing, no significant change noted DOCTOR: Shimon Fields Interpretating Date/Time 10/20/2017 22:02:04
[2017-10-21] VITALS (20 sets, daily range): BP systolic 84–98; BP diastolic 56–70; PULSE 71–103; RESP 16–26; TEMP 97.6–98.6; O2SAT 80–92
[2017-10-21] MEDS: HEPARIN SODIUM - SQ 10,000 UNITS/ML VIAL SQ SCH ×3 (01:18→17:46)
[2017-10-21] MEDS: LEVOTHYROXINE SODIUM 150 MCG TAB PO SCH (06:42)
[2017-10-21 07:24] LABS: AUTOMATED NEUTROPHIL # 10.5 TH/MM3 (1.8-7.7); BASOPHIL % 0.3 % (0.0-2.0); HEMATOCRIT 48.2 % (39.0-51.0); HEMOGLOBIN 16.5 GM/DL (13.0-17.0); LYMPH % 3.7 % (9.0-44.0); LYMPHOCYTE # 0.4 TH/MM3 (1.0-4.8); MEAN CELL VOLUME 82.7 FL (80.0-100.0); MEAN CORPUSCULAR HEMOGLOBIN 28.4 PG (27.0-34.0); MEAN CORPUSCULAR HGB CONC 34.3 % (32.0-36.0); MONOCYTE # 0.6 TH/MM3 (0-0.9); PLATELET COUNT 313 TH/MM3 (150-450); RED BLOOD COUNT 5.83 MIL/MM3 (4.50-5.90); RED CELL DISTRIBUTION WIDTH 15.9 % (11.6-17.2); WHITE BLOOD COUNT 11.6 TH/MM3 (4.0-11.0)
[2017-10-21 07:49] LABS: BICARBONATE 29.2 MEQ/L (21.0-32.0); CALCIUM 8.6 MG/DL (8.5-10.1); CREATININE 1.6 MG/DL (0.60-1.30)
[2017-10-21] MEDS: INSULIN ASPART SUPPLEMENTAL SCALE SQ SCH ×4 (08:27→20:45)
[2017-10-21] MEDS: TIOTROPIUM BROMIDE 18 MCG INH INH SCH (08:27)
[2017-10-21] MEDS: SERTRALINE HCL 50 MG TAB PO SCH (08:27)
[2017-10-21] MEDS: PANTOPRAZOLE SOD 40 MG DELAYED RELEASE TAB PO SCH (08:28)
[2017-10-21] MEDS: METOLAZONE 2.5 MG TAB PO SCH (08:28)
[2017-10-21] MEDS: APIXABAN 2.5 MG TABLET PO SCH ×2 (08:28→20:43)
[2017-10-21] MEDS: BUDESONIDE-FORMOTEROL 80/4.5 MCG INHALER INH SCH ×2 (08:30→20:44)
[2017-10-21] MEDS: FINASTERIDE 5 MG TAB PO SCH (08:30)
[2017-10-21] MEDS: AZITHROMYCIN INJ 500 MG in SODIUM CHLOR 0.9% 250 ML INJ 250 ML IV SCH (08:32)
[2017-10-21] MEDS: SODIUM CHLORIDE 0.9% FLUSH 10 ML FLUSH IV FLUSH SCH ×2 (08:32→20:44)
[2017-10-21] MEDS: DOCUSATE SODIUM 50 MG/SENNA 8.6 MG TAB PO SCH ×2 (09:00→20:45)
[2017-10-21] MEDS ORDERED: POTASSIUM CHLORIDE 10 MEQ CONTROLLED RELEASE TAB PO ONE (09:00)
[2017-10-21] MEDS: NEBIVOLOL 5 MG TAB PO SCH (09:00)
[2017-10-21] MEDS: cefTRIAXone INJ 1,000 MG in SODIUM CHLORIDE 0.9% INJ 100 ML IV SCH (10:43)
--- NOTE | 2017-10-21 12:04 | HHI.PR ---
Subjective Remarks For acute on chronic respiratory failure, CHF exacerbation, and COPD exacerbation Patient stated that breathing has improved drastically. He feels like he is back to his baseline. Patient did not use the BiPAP since last night. He is currently on 5 L of oxygen by nasal cannula. He usually is on 2-3 L at home. Is at the bedside during the interview. His nurse is also at the bedside during the interview. gave me a list of his home medication. Systolic blood pressure in the 80s. Patient is having good urine output. Deny any cough. Otherwise no other complaints and anxious to go home. Objective Vitals Vital Signs Date Time Temp Pulse Resp B/P (MAP) Pulse Ox O2 Delivery O2 Flow Rate FiO2 10/21/17 08:00 97.6 76 25 93/61 (72) 89 10/21/17 07:45 91 Nasal Cannula 6.00 10/21/17 06:00 73 10/21/17 04:00 97.9 76 16 85/59 (68) 90 10/21/17 04:00 76 10/21/17 02:00 80 10/21/17 00:00 98.0 82 17 91/56 (68) 90 10/21/17 00:00 82 10/20/17 22:00 87 10/20/17 20:26 92 Nasal Cannula 5.00 10/20/17 20:00 85 10/20/17 20:00 98.3 85 16 85/58 (67) 89 10/20/17 18:00 80 10/20/17 16:00 97.5 73 18 87/59 (68) 89 10/20/17 16:00 73 10/20/17 14:00 81 10/20/17 14:00 97.8 81 30 99/66 (77) 89 10/20/17 13:18 10/20/17 13:15 85 10/20/17 12:30 80 21 93/64 (74) 91 BiPAP 10/20/17 12:00 76 17 92/52 (65) 92 BiPAP I/O 10/20/17 10/20/17 10/20/17 10/21/17 10/21/17 10/21/17 07:00 15:00 23:00 07:00 15:00 23:00 Intake Total 350 ml 300 ml 120 ml 250 ml Output Total 1000 ml 950 ml 600 ml Balance 350 ml -1000 ml -650 ml -480 ml 250 ml Intake Oral 300 ml 120 ml IV Total 350 ml 250 ml Output Urine Total 1000 ml 950 ml 600 ml # Voids 0 # Bowel Movements 0 Result Diagram: 10/21/1762310/21/17623 Objective Remarks GENERAL: in NAD CARDIOVASCULAR: Regular rate and rhythm without murmurs, gallops, or rubs. RESPIRATORY: Breath sounds equal bilaterally. No accessory muscle use. GASTROINTESTINAL: Abdomen soft, non-tender, nondistended. MUSCULOSKELETAL: trace to 1 pitting edema of LE. Medications and IVs Current Medications Sodium Chloride (NS Flush) 2 ml UNSCH PRN IVF FLUSH AFTER USING IV ACCESS; Start 10/20/17 at 05:00; Stop 10/20/17 at 08:37; Status DC Methylprednisolone Sodium Succinate (SoluMEDROL INJ) 125 mg ONCE ONCE IV PUSH Last administered on 10/20/17at 05:05; Start 10/20/17 at 05:00; Stop 10/20/17 at 05:01; Status DC Albuterol/ Ipratropium (Duoneb Neb) 1 ampule Q15M INH Last administered on 10/20at 05:11; Start 10/20/17 at 05:00; Stop 10/20/17 at 05:16; Status DC Furosemide (Lasix Inj) 60 mg ONCE ONCE IVP Last administered on 10/20/17at 05: 05; Start 10/20/17 at 05:00; Stop 10/20/17 at 05:01; Status DC Cefepime HCl 2000 mg/Sodium Chloride 100 ml @ 200 mls/hr ONCE STAT IV Last administered on 10/20/17at 06:34; Start 10/20/17 at 05:39; Stop 10/20/17 at 06:08 ; Status DC Azithromycin 500 mg/Sodium Chloride 250 ml @ 250 mls/hr ONCE ONCE IV Last administered on 10/20/17at 05:54; Start 10/20/17 at 05:45; Stop 10/20/17 at 06:44 ; Status DC Azithromycin 500 mg/Sodium Chloride 250 ml @ 250 mls/hr Q24H IV Last administered on 10/21/17at 08:32; Start 10/21/17 at 09:00 Ceftriaxone Sodium 1000 mg/ Sodium Chloride 100 ml @ 200 mls/hr Q24H IV Last administered on 10/21/17at 10:43; Start 10/21/17 at 10:00 Furosemide (Lasix Inj) 20 mg BID@,18 IV PUSH Last administered on 10/20/17at 09:03; Start 10/20/17 at 09:00; Stop 10/21/17 at 11:54; Status DC Albuterol/ Ipratropium (Duoneb Neb) 1 ampule Q4HR NEB PRN NEB SOB/WHeezing Last administered on 10/20/17at 20:24; Start 10/20/17 at 06:30 Sodium Chloride (NS Flush) 2 ml UNSCH PRN IV FLUSH FLUSH AFTER USING IV ACCESS ; Start 10/20/17 at 06:30 Sodium Chloride (NS Flush) 2 ml BID IV FLUSH Last administered on 10/21/17at 08: 32; Start 10/20/17 at 09:00 Acetaminophen (Tylenol) 650 mg Q4H PRN PO TEMP > 100.4; Start 10/20/17 at 06:30 Ondansetron HCl (Zofran Inj) 4 mg Q6H PRN IVP NAUSEA OR VOMITING; Start at 06:30 Heparin Sodium (Porcine) (Heparin Inj) 5,000 units Q8H SQ Last administered on 10/21/17at 08:40; Start 10/20/17 at 09:00 Naloxone HCl (Narcan Inj) 0.4 mg UNSCH PRN IV PUSH SEE LABEL COMMENTS; Start at 06:30 Senna/Docusate Sodium (Fransisca-Colace) 1 tab BID PO ; Start 10/20/17 at 09:00 Magnesium Hydroxide (Milk Of Magnesia Liq) 30 ml Q12H PRN PO Mild constipation ; Start 10/20/17 at 06:30 Sennosides (Senokot) 17.2 mg Q12H PRN PO Moderate constipation; Start 10/20/17 at 06:30 Bisacodyl (Dulcolax Supp) 10 mg DAILY PRN RECTAL SEVERE CONSITIPATION; Start at 06:30 Lactulose (Lactulose Liq) 30 ml DAILY PRN PO SEVERE CONSITIPATION; Start at 06:30 Potassium Chloride (KCl) 40 meq ONCE ONCE PO Last administered on 10/20/17at 09 :04; Start 10/20/17 at 06:30; Stop 10/20/17 at 08:48; Status DC Apixaban (Eliquis) 2.5 mg BID PO Last administered on 10/21/17at 08:28; Start at 09:00 Bumetanide (Bumetanide) 1 mg HS PO ; Start 10/20/17 at 21:00; Stop 10/20/17 at 21:00; Status DC Diltiazem HCl (Cardizem Cd) 120 mg DAILY PO Last administered on 10/20/17at 09: 26; Start 10/20/17 at 09:00; Status Future Hold Finasteride (Proscar) 5 mg DAILY PO Last administered on 10/21/17at 08:30; Start 10/20/17 at 09:00; Status Future Hold Levothyroxine Sodium (Synthroid) 150 mcg DAILY@0600 PO Last administered on at 06:42; Start 10/20/17 at 08:43 Metolazone (Zaroxolyn) 2.5 mg DAILY PO Last administered on 10/21/17at 08:28; Start 10/20/17 at 09:00 Nebivolol (Bystolic) 5 mg DAILY PO Last administered on 10/20/17at 09:25; Start 10/20/17 at 09:00 Pantoprazole Sodium (Protonix) 40 mg DAILY PO Last administered on 10/21/17at 08 :28; Start 10/20/17 at 09:00; Stop 10/21/17 at 11:56; Status DC Sertraline HCl (Zoloft) 50 mg DAILY PO Last administered on 10/21/17at 08:27; Start 10/20/17 at 09:00 Tamsulosin HCl (Flomax) 0.4 mg HS PO Last administered on 10/20/17at 21:37; Start 10/20/17 at 21:00; Stop 10/21/17 at 11:56; Status DC Tiotropium [place] (Spiriva Inh) 18 mcg DAILY INH Last administered on at 08:27; Start 10/20/17 at 09:00 Budesonide/ Formoterol Fumarate (Symbicort 80-4.5 Mcg Inh) 2 puff BID INH Last administered on 10/21/17at 08:30; Start 10/20/17 at 09:00 Dextrose (D50w (Vial) Inj) 50 ml UNSCH PRN IV PUSH HYPOGLYCEMIA-SEE COMMENTS; Start 10/20/17 at 06:45 Glucagon (Glucagon Inj) 1 mg UNSCH PRN OTHER HYPOGLYCEMIA-SEE COMMENTS; Start 10/20/17 at 06:45 Insulin Aspart (NovoLOG SUPPLEMENTAL SCALE) 1 ACHS SLIDING SCALE SQ Last administered on 10/21/17at 08:27; Start 10/20/17 at 08:00 Lactated Ringer's 1,000 ml @ 30 mls/hr Q24H PRN IV SEE LABEL COMMENTS; Start at 07:00; Stop 10/23/17 at 06:59 Sodium Chloride 500 ml @ 30 mls/hr [id number] PRN IV SEE LABEL COMMENTS; Start at 07:00; Stop 10/23/17 at 06:59 Metoprolol Tartrate (Lopressor) 25 mg CRIB CLERK PRN PO SEE LABEL COMMENTS; Start 10/20/17 at 07:00; Stop 10/23/17 at 06:59 Povidone Iodine (Betadine 5% Antisepsis Kit) 1 applic CRIB CLERK PRN EACH NARE SEE LABEL COMMENTS; Start 10/20/17 at 07:00; Stop 10/23/17 at 06:59 Chlorhexidine Gluconate (Chlorhexidine 2% Cloth) 3 pack CRIB CLERK PRN TOPICAL SEE LABEL COMMENTS; Start 10/20/17 at 07:00; Stop 10/23/17 at 06:59 Potassium Chloride (KCl) 30 meq ONCE ONCE PO Last administered on 10/21/17at 10 :41; Start 10/21/17 at 09:00; Stop 10/21/17 at 09:01; Status DC Bumetanide (Bumetanide) 2 mg BID@09,18 PO ; Start 10/21/17 at 18:00; Status UNV A/P Assessment and Plan This is an 82-year-old male presented with shortness of breathing 1 day Acute on chronic respiratory failure -Chest x-ray shows bilateral infiltrate non-consolidative. BNP elevated at 998 with some lower extremity edema. -This may be secondary to CHF exacerbation or COPD exacerbation or a combination CHF/COPD exacerbation. -Clinically patient is improving off the BiPAP. -Will DC Lasix IV since patient is hypotensive and clinically improving almost back to his baseline. Resume home medication were parameters. -Continue strict ins and outs. Continue with DuoNeb nebs. Will transition to oral prednisone. Continue Rocephin and azithromycin. -Will wean oxygen. CHF exacerbation -See treatment as above. Hypertension -Patient on bystolic 5 mg daily and diltiazem [address] due to low blood pressure. COPD exacerbation -? Clinically does not sound like he is in exacerbation may be more due to CHF. -See treatment as above. Type 2 diabetes/history of atrial fibrillation/chronic anticoagulation/ hypertension/hyperlipidemia/GERD -Continue home medication. -Insulin sliding scale. BPH -Per patient medication list he is only on Proscar. Will hold secondary to hypotension. Depression -Continue with sertraline. Chronic kidney disease most likely secondary to hypertension and diabetes -Avoid nephrotoxins. Creatinine improving and patient at baseline. -strict ins and outs since he is on Lasix. DVT prophylaxis -On Eliquis. Discussed case with patient's nurse. Discharge Planning Clinically improving can be transferred to [facility]. La Nena Lees MD Oct 21, 2017 12:04
[2017-10-21] MEDS: BUMETANIDE 1 MG TAB PO SCH (17:48)
[2017-10-22] VITALS (26 sets, daily range): BP systolic 96–109; BP diastolic 59–73; PULSE 68–85; RESP 16–20; TEMP 97.6–98.8; O2SAT 92–97
[2017-10-22] MEDS: HEPARIN SODIUM - SQ 10,000 UNITS/ML VIAL SQ SCH ×3 (01:58→16:21)
[2017-10-22 04:33] LABS: HEMOGLOBIN 16.8 GM/DL (13.0-17.0); MEAN CELL VOLUME 81.9 FL (80.0-100.0); MEAN CORPUSCULAR HGB CONC 34.2 % (32.0-36.0); PLATELET COUNT 337 TH/MM3 (150-450); RED BLOOD COUNT 5.98 MIL/MM3 (4.50-5.90); RED CELL DISTRIBUTION WIDTH 15.6 % (11.6-17.2); WHITE BLOOD COUNT 8.3 TH/MM3 (4.0-11.0)
[2017-10-22 05:01] LABS: BICARBONATE 28.7 MEQ/L (21.0-32.0); CALCIUM 8.3 MG/DL (8.5-10.1); CREATININE 1.35 MG/DL (0.60-1.30); MAGNESIUM 2.2 MG/DL (1.5-2.5)
--- NOTE | 2017-10-22 05:16 | RADRPT ---
EXAM DATE/TIME: 10/22/2017 05:00 [facility] COMPARISON: CHEST SINGLE AP, October 20, 2017, 5:14. INDICATIONS : Shortness of breath. MEDICAL HISTORY : Chronic obstructive pulmonary disease. SURGICAL HISTORY : None. ENCOUNTER: Subsequent ACUITY: 1 week PAIN SCORE: 0/10 LOCATION: Bilateral chest FINDINGS: There is some indistinctness of the central bronchopulmonary markings and mild peribronchial thickeni ng, a new finding from prior examination. The heart is mildly enlarged and there is stable tortuosit y of descending thoracic aorta. Both hemidiaphragms are well delineated. CONCLUSION: Interval development of engorgement and indistinctness of the central bronchopulmonary markings sugge sting pulmonary venous hypertension. Sumanth Gerardo MD on October 22, 2017 at 5:13 Board Certified Radiologist. This report was verified electronically.
[2017-10-22] MEDS: LEVOTHYROXINE SODIUM 150 MCG TAB PO SCH (06:00)
[2017-10-22] MEDS: INSULIN ASPART SUPPLEMENTAL SCALE SQ SCH ×4 (08:00→21:00)
[2017-10-22] MEDS ORDERED: POTASSIUM CHLORIDE 25 MEQ EFFERVESCENT TAB PO ONE (08:45)
[2017-10-22] MEDS: SODIUM CHLORIDE 0.9% FLUSH 10 ML FLUSH IV FLUSH SCH ×2 (09:00→23:04)
[2017-10-22] MEDS: BUDESONIDE-FORMOTEROL 80/4.5 MCG INHALER INH SCH ×2 (09:00→23:04)
[2017-10-22] MEDS: TIOTROPIUM BROMIDE 18 MCG INH INH SCH (09:00)
[2017-10-22] MEDS: METOLAZONE 2.5 MG TAB PO SCH (09:00)
[2017-10-22] MEDS: NEBIVOLOL 5 MG TAB PO SCH (09:22)
[2017-10-22] MEDS: SERTRALINE HCL 50 MG TAB PO SCH (09:22)
[2017-10-22] MEDS: DOCUSATE SODIUM 50 MG/SENNA 8.6 MG TAB PO SCH ×2 (09:22→21:00)
[2017-10-22] MEDS: BUMETANIDE 1 MG TAB PO SCH (09:23)
[2017-10-22] MEDS: AZITHROMYCIN INJ 500 MG in SODIUM CHLOR 0.9% 250 ML INJ 250 ML IV SCH (09:23)
[2017-10-22] MEDS: APIXABAN 2.5 MG TABLET PO SCH ×2 (09:23→23:04)
[2017-10-22] MEDS: cefTRIAXone INJ 1,000 MG in SODIUM CHLORIDE 0.9% INJ 100 ML IV SCH (10:00)
[2017-10-22] MEDS ORDERED: POTASSIUM CHLORIDE 20 MEQ CONTROLLED RELEASE TAB PO ONE (15:45)
--- NOTE | 2017-10-22 18:53 | HHI.PR ---
Subjective Remarks Late entry patient seen 11:20 am patient has no complaints. he denied any SOB and feels like he is back to baseline. I decreased his oxygen at bedside for 5 L gradually down to 3 L and patient was sating at 93 percent on 3 L. His at the bedside and she stated that she thinks his blood pressure is low at times because when she check his BP at times she stated the monitor cant read it and that means its low. stated that metolazone is suppose to be taken every other day and Bumex 2 mg in AM. Denied any palpitations, cough or lightheadedness or dizziness. Nurse at the bedside the entire interview. Objective Vitals Vital Signs Date Time Temp Pulse Resp B/P (MAP) Pulse Ox O2 Delivery O2 Flow Rate FiO2 10/22/17 18:00 80 10/22/17 17:00 80 10/22/17 16:00 68 10/22/17 15:00 75 10/22/17 15:00 98.1 85 20 109/71 (84) 94 10/22/17 14:00 76 10/22/17 13:00 82 10/22/17 12:00 75 10/22/17 11:00 73 10/22/17 11:00 98.8 82 20 97/70 (79) 93 10/22/17 10:00 78 10/22/17 09:00 84 10/22/17 08:10 97 Nasal Cannula 4.00 10/22/17 08:00 76 10/22/17 07:10 98.2 79 20 96/59 (71) 97 10/22/17 07:10 68 10/22/17 06:00 68 10/22/17 05:00 98.2 77 16 101/66 (78) 92 10/22/17 05:00 76 10/22/17 04:00 76 10/22/17 03:00 71 10/22/17 02:00 76 10/22/17 01:00 72 10/22/17 00:00 70 10/21/17 23:00 98.4 75 16 84/57 (66) 91 10/21/17 23:00 71 10/21/17 22:00 78 10/21/17 21:00 84 10/21/17 20:55 92 Nasal Cannula 4.00 10/21/17 20:00 84 10/21/17 20:00 98.3 92 16 86/69 (75) 89 10/21/17 19:00 90 I/O 10/21/17 10/21/17 10/21/17 10/22/17 10/22/17 10/22/17 07:00 15:00 23:00 07:00 15:00 23:00 Intake Total 120 ml 550 ml 240 ml 340 ml 960 ml Output Total 600 ml 160 ml 200 ml 850 ml 900 ml Balance -480 ml 390 ml 40 ml -510 ml 60 ml Intake Oral 120 ml 200 ml 240 ml 340 ml 960 ml IV Total 350 ml Output Urine Total 600 ml 160 ml 200 ml 850 ml 900 ml # Bowel Movements 0 1 2 Result Diagram: 10/22/1740810/22/17408 Objective Remarks GENERAL: in NAD CARDIOVASCULAR: Regular rate and rhythm without murmurs, gallops, or rubs. RESPIRATORY: Breath sounds equal bilaterally. No accessory muscle use. GASTROINTESTINAL: Abdomen soft, non-tender, nondistended. MUSCULOSKELETAL: trace pitting edema of LE. Medications and IVs Last Impressions Chest X-Ray 10/22/17 0600 Signed Impressions: Service Date/Time: September 05:00 - CONCLUSION: Interval development of engorgement and indistinctness of the central bronchopulmonary markings suggesting pulmonary venous hypertension. Sumanth Gerardo MD A/P Assessment and Plan This is an 82-year-old male presented with shortness of breathing 1 day Acute on chronic respiratory failure -Chest x-ray shows bilateral infiltrate non-consolidative. BNP elevated at 998 with some lower extremity edema. -This may be secondary to CHF exacerbation or COPD exacerbation or a combination CHF/COPD exacerbation. -in terms of oxygen back to baseline.. -will decrease Bumex to his home dose.. CHF exacerbation -See treatment as above. Hypertension -Patient on bystolic 5 mg daily and diltiazem [address] due to low blood pressure. will hole diltiazem. COPD exacerbation -? Clinically does not sound like he is in exacerbation may be more due to CHF. -See treatment as above. Type 2 diabetes/history of atrial fibrillation/chronic anticoagulation/ hypertension/hyperlipidemia/GERD -Continue home medication. -Insulin sliding scale. BPH -Per patient medication list he is only on Proscar. restart proscar. Depression -Continue with sertraline. Chronic kidney disease most likely secondary to hypertension and diabetes -Avoid nephrotoxins. Creatinine improving and patient at baseline. -strict ins and outs since he is on Lasix. DVT prophylaxis -On Eliquis. Discussed case with patient's nurse. Discharge Planning anticipate discharge in 1-2 days if blood pressure improves. La Nena Lees MD Oct 22, 2017 18:53
[2017-10-23] VITALS (10 sets, daily range): BP systolic 96–99; BP diastolic 60–66; PULSE 71–97; RESP 16–20; TEMP 97.8–98.1; O2SAT 90–95
[2017-10-23] MEDS: HEPARIN SODIUM - SQ 10,000 UNITS/ML VIAL SQ SCH ×2 (02:33→09:14)
[2017-10-23] MEDS: LEVOTHYROXINE SODIUM 150 MCG TAB PO SCH (05:58)
[2017-10-23 06:51] LABS: BICARBONATE 31.7 MEQ/L (21.0-32.0); CALCIUM 8.7 MG/DL (8.5-10.1); CREATININE 1.24 MG/DL (0.60-1.30)
[2017-10-23] MEDS ORDERED: BUME1TAB PO (07:59)
[2017-10-23] MEDS ORDERED: AUGM875T3 PO (07:59)
[2017-10-23] MEDS ORDERED: POTASSIUM CHLORIDE 10 MEQ CONTROLLED RELEASE TAB PO ONE (08:00)
[2017-10-23] MEDS: INSULIN ASPART SUPPLEMENTAL SCALE SQ SCH (08:00)
--- NOTE | 2017-10-23 08:00 | HHI.DCPOC ---
Discharge Care Plan Diagnosis: (1) Hypotension (2) COPD (chronic obstructive pulmonary disease) (3) Acute exacerbation of congestive heart failure (4) Acute on chronic respiratory failure with hypoxemia Goals to Promote Your Health * To prevent worsening of your condition and complications * To maintain your health at the optimal level Directions to Meet Your Goals Take your medications as prescribed Follow your dietary instruction Follow activity as directed Keep your appointments as scheduled Take your immunizations and boosters as scheduled If your symptoms worsen call your PCP, if no PCP go to Urgent Care Center or Emergency Room Smoking is Dangerous to Your Health. Avoid second hand smoke Call the 24-hour hour crisis hotline for domestic abuse at La Nena Lees MD Oct 23, 2017 08:00
[2017-10-23] MEDS ORDERED: TRAM-388 PO (08:43)
[2017-10-23] MEDS ORDERED: traMADol/ACETAMINOPHEN 37.5/325 1 TAB PO PRN (08:45)
--- NOTE | 2017-10-23 08:45 | HHI.DS ---
Discharge Summary Admission Date Oct 20, 2017 at 06:30 Discharge Date: Oct 23, 2017 Admitting Diagnosis CHF exacerbation, Hypoxemia on usual home o2 (1) Acute on chronic respiratory failure with hypoxemia ICD Code: J96.21 - Acute and chronic respiratory failure with hypoxia Diagnosis: Principal Status: Acute (2) CHF exacerbation ICD Code: I50.9 - Heart failure, unspecified Diagnosis: Principal (3) COPD (chronic obstructive pulmonary disease) ICD Code: J44.9 - Chronic obstructive pulmonary disease, unspecified Diagnosis: Principal (4) Hypotension ICD Code: I95.9 - Hypotension, unspecified Diagnosis: Principal (5) Pulmonary hypertension ICD Code: I27.20 - Pulmonary hypertension, unspecified Diagnosis: Principal (6) Osteoarthritis ICD Code: M19.90 - Unspecified osteoarthritis, unspecified site Diagnosis: Secondary Procedures see hospital course Brief History - From Admission This is an 82-year-old male history of atrial fibrillation, COPD, history of asbestos exposure, type 2 diabetes, chronic respiratory failure on home oxygen 2 L and hypertension who presented with shortness of breathing. Patient stated that shortness of breathing started yesterday worsens so went to emergency department last night. He denies any URI symptoms or cold-like symptoms. Denies any cough. Patient stated that he was doing well prior from this. Deny any fevers or chills. Stopped tobacco use 22 years ago. Deny any increased swelling in the lower extremity. Patient was given a dose of Lasix and start antibiotics in the ED. He was also put on BiPAP. Patient stated that his breathing has improved drastically. All other review system reviewed and negative. CBC/BMP: 10/22/17 0409 10/23/17 0414 Significant Findings Laboratory Tests Test 10/20/17 11:14 10/20/17 16:45 10/21/17 06:24 10/22/17 04:09 Total Creatine Kinase 35 U/L (39-308) Troponin I 0.11 NG/ML (0.02-0.05) 0.12 NG/ML (0.02-0.05) White Blood Count 11.6 TH/MM3 (4.0-11.0) Neutrophils (%) (Auto) 91.0 % (16.0-70.0) Lymphocytes (%) (Auto) 3.7 % (9.0-44.0) Neutrophils # (Auto) 10.5 TH/MM3 (1.8-7.7) Lymphocytes # (Auto) 0.4 TH/MM3 (1.0-4.8) Blood Urea Nitrogen 67 MG/DL (7-18) 62 MG/DL (7-18) Creatinine 1.60 MG/DL (0.60-1.30) 1.35 MG/DL (0.60-1.30) Random Glucose 179 MG/DL (74-106) 129 MG/DL (74-106) Potassium Level 3.3 MEQ/L (3.5-5.1) 3.3 MEQ/L (3.5-5.1) Estimat Glomerular Filtration Rate 42 ML/MIN (>89) 51 ML/MIN (>89) Red Blood Count 5.98 MIL/MM3 (4.50-5.90) Calcium Level 8.3 MG/DL (8.5-10.1) Test 10/23/17 04:14 Blood Urea Nitrogen 50 MG/DL (7-18) Potassium Level 3.1 MEQ/L (3.5-5.1) Estimat Glomerular Filtration Rate 56 ML/MIN (>89) Imaging Last Impressions Chest X-Ray 10/22/17 0600 Signed Impressions: Service Date/Time: September 05:00 - CONCLUSION: Interval development of engorgement and indistinctness of the central bronchopulmonary markings suggesting pulmonary venous hypertension. Sumanth Gerardo MD PE at Discharge GENERAL: in NAD CARDIOVASCULAR: Regular rate and rhythm without murmurs, gallops, or rubs. RESPIRATORY: Breath sounds equal bilaterally. No accessory muscle use. GASTROINTESTINAL: Abdomen soft, non-tender, nondistended. MUSCULOSKELETAL: trace LE pitting edema B/L foot TTP of the foot but no lesions , swelling or wounds noted. Pt update on day of discharge Follow-up for hypotension and respiratory failure Patient found sitting in bed eating breakfast. Patient denies any shortness of breathing. He stated he is ready to go. His only complaint is that he has bilateral foot pain that happens intermittently. I asked patient if he takes the medication at home for he said yes. On the medical records and stated that patient took Tylenol on NSAID in which I told patient he cannot take any NSAIDs secondary to kidney function. I spoke to patient that I can prescribe something little stronger in case Tylenol did not work for him and he stated okay. Blood pressure has been stable. Patient's is at the bedside. Per patient is not coming until 11:00 AM since she is at a doctor's appointment. Later that day after patient was discharged patient's nurse told me that was requesting home a home health and that she had questions about his medication list. I spoke to patient's over the phone and she asked why prescribed tramadol and I explained to her as above that he was given just in case Tylenol did not work for him. I also told her that if she feels like she does not want to given the medication or he does not want to take it patient does not have to take medication. also asked about the home health order. Otherwise she had no other questions and all her questions were answered to her satisfaction. Hospital Course This is an 82-year-old male presented with shortness of breathing 1 day Acute on chronic respiratory failure -Chest x-ray shows bilateral infiltrate non-consolidative. BNP elevated at 998 with some lower extremity edema. -This may be secondary to CHF exacerbation or COPD exacerbation or a combination CHF/COPD exacerbation during the hospital course to see more due to CHF exacerbation since patient clinically improve with aggressive diuresis. -He went back quickly to his baseline quickly but his blood pressure was monitored closely since it was low. CHF exacerbation -See treatment as above. Hypertension -Patient on bystolic 5 mg daily and diltiazem 120 mg daily. Diltiazem was discontinued secondary to low blood pressure. Per patient's patient seems to have a problem at home with low blood pressure. His blood pressure has been low but stable during his hospital course. Most likely patient probably runs low. Patient and was told to follow-up with her PCP within 3-5 days to determine if they can restart any anti-hypertensive of medication. COPD -Initially was thought that patient may of had a COPD exacerbation but very unlikely. Most likely symptoms were due to CHF exacerbation. Type 2 diabetes/history of atrial fibrillation/chronic anticoagulation/ hypertension/hyperlipidemia/GERD -Continue home medication. -Insulin sliding scale. BPH -Per patient medication list he is only on Proscar. Proscar was restarted the day before discharge to see if his blood pressure will tolerate the medication. Depression -Continue with sertraline. Chronic kidney disease most likely secondary to hypertension and diabetes -Avoid nephrotoxins. -Improved throughout the hospital course. Patient told to avoid NSAIDs. Pt Condition on Discharge: Stable Discharge Disposition: Discharge Home Discharge Time: > 30 minutes Discharge Instructions DIET: Follow Instructions for: Heart Healthy Diet Additional Diet Instructions: Fluid restriction no more than 2 L of fluids a day. Activities you can perform: Regular-No Restrictions Follow up Referrals: PCP Follow-up - 3-5 Days New Medications: Amoxicillin-Clavulanate (Augmentin) 875-125 Mg Tab 1 TAB PO BID for Infection, #8 TAB 0 Refills Tramadol-Acetaminophen (Tramadol-Acetaminophen) 37.5-325 mg Tab 1 TAB PO Q4H PRN for PAIN, #20 TAB 0 Refills Bumetanide (Bumetanide) 1 Mg Tab 2 MG PO DAILY for CHF, #30 TAB 0 Refills Continued Medications: Acetaminophen (Tylenol Arthritis) 650 Mg Tablet.er Albuterol 8.5 GM Inh (Proair Hfa 8.5 GM Inh) 90 Mcg/Act Aer 2 PUFF INH Q4-6H PRN for SHORTNESS OF BREATH, #1 INHALER 0 Refills 108 mcg/actuation Apixaban (Eliquis) 2.5 Mg Tab 2.5 MG PO BID for Prevent Blood Clot, #60 TAB B-Complex Vitamins (Vitamin B Complex) 1 Tab Eszopiclone (Eszopiclone) 3 Mg Tab 3 MG PO DAILY PRN for INSOMNIA, #30 TAB 0 Refills Finasteride (Finasteride) 5 Mg Tab 5 MG PO DAILY for Manage Prostate Problems, #30 TAB 0 Refills Do not crush. Fluticasone-Salmeterol Inh (Advair Diskus Inh) 100-50 Mcg/Blist Aer 1 PUFF INH DAILY for Asthma Management, #1 INHALER 0 Refills Rinse mouth after use. Levothyroxine (Synthroid) 150 Mcg Tab 150 MCG PO DAILY for Thyroid, #30 TAB 0 Refills Linagliptin (Tradjenta) 5 Mg Tab 5 MG PO DAILY for Blood Sugar Management, #30 TAB 0 Refills Metolazone (Metolazone) 2.5 Mg Tab 2.5 MG PO DAILY, #30 TAB 0 Refills Nebivolol (Bystolic) 5 Mg Tab 5 MG PO DAILY for Blood Pressure Management, #30 TAB 0 Refills Prednisone (Prednisone) 10 Mg Tab 10 MG PO DAILY, TAB 0 Refills Rabeprazole (Rabeprazole) 20 Mg Tab 20 MG PO DAILY for Reflux, #30 TAB 0 Refills Sertraline (Sertraline) 50 Mg Tab 50 MG PO DAILY, #30 TAB 0 Refills Tiotropium Inh (Spiriva Handihaler) 18 Mcg Cap 18 MCG INH DAILY for COPD, #30 CAP 0 Refills 1 capsule = 18 mcg [Iron] () 35 MG DAILY [Potassium Cl Packet] () 20 DAILY Discontinued Medications: Bumetanide (Bumetanide) 1 Mg Tab 1 MG PO HS, #30 TAB 0 Refills Diltiazem CD 24 HR (Cardizem CD 24 HR) 120 Mg Caper 120 MG PO DAILY for Regulate Heart Beat, #30 CAP Meloxicam (Meloxicam) 7.5 Mg Tab 7.5 MG PO DAILY for Arthritis Pain, TAB 0 Refills Tadalafil (Cialis) 5 Mg Tab 5 MG PO DAILY, TAB 0 Refills Do not exceed 1 dose/day. Tamsulosin (Tamsulosin) 0.4 Mg Cap 0.4 MG PO HS for Manage Prostate Problems, #30 CAP 0 Refills La Nena Lees MD Oct 23, 2017 08:45
[2017-10-23] MEDS: DOCUSATE SODIUM 50 MG/SENNA 8.6 MG TAB PO SCH (09:00)
[2017-10-23] MEDS ORDERED: BUMETANIDE 1 MG TAB PO SCH (09:00)
[2017-10-23] MEDS: SODIUM CHLORIDE 0.9% FLUSH 10 ML FLUSH IV FLUSH SCH (09:00)
[2017-10-23] MEDS: FINASTERIDE 5 MG TAB PO SCH (09:14)
[2017-10-23] MEDS: SERTRALINE HCL 50 MG TAB PO SCH (09:15)
[2017-10-23] MEDS: APIXABAN 2.5 MG TABLET PO SCH (09:15)
[2017-10-23] MEDS: NEBIVOLOL 5 MG TAB PO SCH (09:15)
[2017-10-23] MEDS: BUDESONIDE-FORMOTEROL 80/4.5 MCG INHALER INH SCH (09:16)
[2017-10-23] MEDS: TIOTROPIUM BROMIDE 18 MCG INH INH SCH (09:16)
--- NOTE | 2017-10-23 11:39 | HHI.FF ---
Face to Face Verification Diagnosis: (1) Acute on chronic respiratory failure with hypoxemia (2) Pulmonary hypertension (3) COPD, end-stage (4) Hypotension Physical Therapy Order: Evaluate and Treat, Improve ambulation, Strength and gait training Home Health Nursing Order: Medical education Signs/symptoms of disease process CHF education Oxygen administration education Medication education-adverse effect I have seen patient Ney Bennett on 10/23/17. My clinical findings support the need for the requested home health care services because: Patient has SOB I certify that my clinical findings support that this patient is homebound because: Poor cardiac reserve La Nena Lees MD Oct 23, 2017 11:39
== END 2017-10-23 09:52 | disposition home or self-care (01) | DRG 291 ==
LOC: NEPC 04:40 → NEDA 06:30 → HIMN 13:07 → HCPC 10-21 15:20
PROVIDERS: ADMIT Family Medicine; ATTEND Family Medicine
PROC: 5A09357 Assistance with Respiratory Ventilation, Less than 24 Consecutive Hours, Continuous Positive Airway Pressure (ICD-10-PCS; principal; 2017-10-20)
DX: I13.0 Hypertensive heart and chronic kidney disease with heart failure and stage 1 through stage 4 chronic kidney disease, or unspecified chronic kidney disease (principal); J96.21 Acute and chronic respiratory failure with hypoxia; I95.9 Hypotension, unspecified; E11.22 Type 2 diabetes mellitus with diabetic chronic kidney disease; E11.42 Type 2 diabetes mellitus with diabetic polyneuropathy; I27.20 Pulmonary hypertension, unspecified; E11.51 Type 2 diabetes mellitus with diabetic peripheral angiopathy without gangrene; J44.1 Chronic obstructive pulmonary disease with (acute) exacerbation; I50.9 Heart failure, unspecified; I07.1 Rheumatic tricuspid insufficiency; N18.9 Chronic kidney disease, unspecified; I48.91 Unspecified atrial fibrillation; E78.5 Hyperlipidemia, unspecified; N40.0 Benign prostatic hyperplasia without lower urinary tract symptoms; E03.9 Hypothyroidism, unspecified; K21.9 Gastro-esophageal reflux disease without esophagitis; K45.8 Other specified abdominal hernia without obstruction or gangrene; I49.1 Atrial premature depolarization; R00.0 Tachycardia, unspecified; M19.90 Unspecified osteoarthritis, unspecified site; Z77.090 Contact with and (suspected) exposure to asbestos; Z79.01 Long term (current) use of anticoagulants; Z79.84 Long term (current) use of oral hypoglycemic drugs; Z83.3 Family history of diabetes mellitus; Z82.49 Family history of ischemic heart disease and other diseases of the circulatory system; Z85.51 Personal history of malignant neoplasm of bladder; Z86.73 Personal history of transient ischemic attack (TIA), and cerebral infarction without residual deficits; Z87.891 Personal history of nicotine dependence; Z88.1 Allergy status to other antibiotic agents; Z99.81 Dependence on supplemental oxygen
CPT/HCPCS: 36600; 71045; 71046; 80048; 80053; 81001; 82550; 82805; 82948; 83605; 83735; 83880; 84484; 85025; 85027; 85610; 85730; 87040; 93005; 94002; 94640; 94664; 96374; 96375; J0456; J0692; J0696; J1644; J1815; J1940; J2930; J7050

== ENCOUNTER → 2017-10-29 | Outpatient (CLI) | payer MEDICARE, BC ==
[~2017-10-29] MED LIST changes: +ACET650T67; +AUGM875T3 PO; -CARD120C4 PO; -CIAL5TAB PO; -DILT120T PO; +ESZO1TAB4 PO; -FERR1TAB36 PO; +Iron; +METO2.5T PO; +POTASSIUM CL; +PRED10 PO; -PRED5TAB PO; -TAMS0.4C4 PO; +TRAM-388 PO; +VITATAB11
[2017-10-29 14:28] LABS: ALBUMIN 3.5 GM/DL (3.4-5.0); BLOOD UREA NITROGEN 58 MG/DL (7-18); CALCIUM 8.7 MG/DL (8.5-10.1); CHLORIDE 98 MEQ/L (98-107); CHOLESTEROL 87 MG/DL (120-200); CREATININE 1.72 MG/DL (0.60-1.30); GLOMERULAR FILTRATION RATE 38 ML/MIN (>89); GLUCOSE,FASTING 103 MG/DL (74-99); SODIUM (NA) 138 MEQ/L (136-145)
[2017-10-29 14:40] LABS: ALKALINE PHOSPHATASE 75 U/L (45-117); ALT (GPT) 24 U/L (12-78); AST (GOT) 25 U/L (15-37); CHOLESTEROL/ HDL RATIO 2.12 RATIO; HDL CHOLESTEROL 40.9 MG/DL (40.0-60.0); LDL CHOLESTEROL 33 MG/DL (0-99); LDL CHOLESTEROL DIRECT 49 MG/DL (0-99); TOTAL BILIRUBIN ADULT 0.8 MG/DL (0.2-1.0); TOTAL PROTEIN 7.8 GM/DL (6.4-8.2); TRIGLYCERIDES 66 MG/DL (42-150)
[2017-10-29 17:28] LABS: HEMOGLOBIN A1C 7.8 % (4.3-6.0)
== END ==
LOC: PLAB 09:34
PROVIDERS: ATTEND Family Medicine
DX: E11.9 Type 2 diabetes mellitus without complications (principal); E78.5 Hyperlipidemia, unspecified; I10 Essential (primary) hypertension; E03.9 Hypothyroidism, unspecified
CPT/HCPCS: 36415; 80053; 80061; 83036; 83721; 84443

== ENCOUNTER → 2018-01-11 | Outpatient (CLI) | payer MEDICARE, BC ==
[2018-01-11 17:42] LABS: AUTOMATED NEUTROPHIL # 7.8 TH/MM3 (1.8-7.7); BASOPHIL # 0.1 TH/MM3 (0-0.2); BASOPHIL % 0.9 % (0.0-2.0); EOSINOPHIL # 0.1 TH/MM3 (0-0.4); EOSINOPHIL % 0.9 % (0.0-4.0); HEMATOCRIT 57.3 % (39.0-51.0); HEMOGLOBIN 18.8 GM/DL (13.0-17.0); LYMPHOCYTE # 0.7 TH/MM3 (1.0-4.8); MEAN CELL VOLUME 81.2 FL (80.0-100.0); MEAN CORPUSCULAR HEMOGLOBIN 26.7 PG (27.0-34.0); MEAN CORPUSCULAR HGB CONC 32.8 % (32.0-36.0); MEAN PLATELET VOLUME 9.3 FL (7.0-11.0); MONO % 5.9 % (0.0-8.0); MONOCYTE # 0.5 TH/MM3 (0-0.9); NEUT % 84.3 % (16.0-70.0); PLATELET COUNT 402 TH/MM3 (150-450); RED BLOOD COUNT 7.06 MIL/MM3 (4.50-5.90); RED CELL DISTRIBUTION WIDTH 16.4 % (11.6-17.2); WHITE BLOOD COUNT 9.3 TH/MM3 (4.0-11.0)
[2018-01-11 17:43] LABS: BILIRUBIN, URINE NEG (NEG); BLOOD, URINE NEG (NEG); GLUCOSE,URINE NEG (NEG); HYALINE CAST, URINE 21 /lpf (RARE); KETONE, URINE NEG (NEG); NITRITE,URINE NEG (NEG); PH, URINE 6.5 (5.0-8.5); URINE COLOR YELLOW (YELLW/STRAW); URINE LEUKOCYTE ESTERASE MOD (NEG)
[2018-01-11 17:45] LABS: ALBUMIN 3.8 GM/DL (3.4-5.0); AST (GOT) 22 U/L (15-37); BICARBONATE 30.6 MEQ/L (21.0-32.0); BLOOD UREA NITROGEN 53 MG/DL (7-18); CALCIUM 9.7 MG/DL (8.5-10.1); CHLORIDE 99 MEQ/L (98-107); GLUCOSE,FASTING 129 MG/DL (74-99); SODIUM (NA) 139 MEQ/L (136-145)
[2018-01-11 17:52] LABS: ALKALINE PHOSPHATASE 81 U/L (45-117); ALT (GPT) 19 U/L (12-78); CHOLESTEROL 103 MG/DL (120-200); CHOLESTEROL/ HDL RATIO 2.29 RATIO; CREATININE 1.98 MG/DL (0.60-1.30); GLOMERULAR FILTRATION RATE 33 ML/MIN (>89); HDL CHOLESTEROL 44.8 MG/DL (40.0-60.0); LDL CHOLESTEROL 41 MG/DL (0-99); TOTAL BILIRUBIN ADULT 1.4 MG/DL (0.2-1.0); TOTAL PROTEIN 7.6 GM/DL (6.4-8.2); TRIGLYCERIDES 88 MG/DL (42-150)
[2018-01-11 18:17] LABS: BANDS 4 % (0-6); BASOPHILS 1 % (0-2); LYMPHOCYTES 6 % (9-44); MONOCYTES 7 % (0-8); NEUTROPHIL # MANUAL DIFF 7.8 TH/MM3 (1.8-7.7); POLYS (SEG NEUTROPHILS) 80 % (16-70)
[2018-01-11 19:30] LABS: HEMOGLOBIN A1C 6.7 % (4.3-6.0)
== END ==
LOC: PLAB 12:57
PROVIDERS: ATTEND Internal Medicine Nephrology
DX: I48.91 Unspecified atrial fibrillation (principal); E11.22 Type 2 diabetes mellitus with diabetic chronic kidney disease; N18.3 Chronic kidney disease, stage 3 (moderate)
CPT/HCPCS: 36415; 80053; 80061; 81001; 83036; 84100; 85007; 85027

== ENCOUNTER → 2018-02-10 | Outpatient (CLI) | payer MEDICARE, BC | LOC: PLAB 12:10 | PROVIDERS: ATTEND Family Medicine | DX: M35.3 Polymyalgia rheumatica (principal) | CPT/HCPCS: 36415; 85652; 86140 ==